=== PATIENT | male | born 1955 | race Caucasian/White ===

== ENCOUNTER 2018-09-01 16:48 | Inpatient (IN) | payer OTHER ==
--- NOTE | 2018-09-01 19:37 | ER Document Report ---
ED Medical Screen (RME) - General Chief Complaint: Shortness Of Breath Stated Complaint: BREATHING PROBLEMS Time Seen by Provider: 09/01/18 19:08 - HPI Notes: 09/01/18 19:24 Patient is a 62-year-old male with a history of hypertension, diabetes, COPD, for previous CVAs and on Aggrenox who presents with daughter and son with multiple complaints. Family states that his last known normal was last evening and this morning throughout the day they have noticed changes in his strength and behavior. Son states that he has shown more weakness than normal on the right side and is acting sluggish and "not himself." Patient states that he normally has right-sided weakness from the previous strokes, but states that he does feel weaker on his right and left area son states that when he was walking earlier today he noticed that the patient was dragging his right side more than normal. He is also been experiencing fatigue, mild JACOB, right-sided chest pain, occ cough, shortness of breath, mild generalized abdominal pain, nausea and vomiting throughout the day today. Today he has had issues with urinary urgency and frequency and had an accident on himself here in the waiting room. Daughter is not sure if he actually feels it coming on, but patient states that he feels the urge, but cannot hold it in long enough to get to the bathroom. Patient denies any saddle anesthesia. Denies any fever, neck pain, changes in vision /speech/hearing, URI, sore throat, palpitations, syncope, diarrhea, numbness/tingling, saddle anesthesia, muscle paralysis, or rash. I have treated and performed a rapid initial assessment of this patient. A comprehensive ED assessment and evaluation of the patient, analysis of test results and completion of medical decision making process will be conducted by additional ED providers. PHYSICAL EXAMINATION: GENERAL: no acute distress aside from mild tachypnea. A&O to person/place but too a guess at the year at 2016. Answers questions appropriately otherwise. HEAD: Atraumatic, normocephalic. Non-tender. EYES: Pupils equal round and reactive to light, extraocular movements intact, sclera anicteric, conjunctiva are normal. No nystagmus. ENT: Nares patent and without discharge. oropharynx clear without exudates. No tonsilar hypertrophy or erythema. Moist mucous membranes. NECK: Normal range of motion, supple without lymphadenopathy. No rigidity/meningismus. No midline tenderness. LUNGS: Breath sounds clear to auscultation bilaterally and equal. No wheezes rales or rhonchi. + mild tachypnea and shallow breaths HEART: Regular rate and rhythm but somewhat tachycardic ABDOMEN: Soft, nondistended abdomen. No guarding, no rebound. Normal bowel sounds present. No CVA tenderness bilaterally. + mild generalized tenderness. Musculoskeletal: Ext b/l: FROM to passive/active. Strength 4+/5 on right and 5+/5 on the left (minimal difference noted). Extremities: No cyanosis, clubbing, or edema b/l. Peripheral pulses 2+. Capillary refill less than 2 seconds. NEUROLOGICAL: NIH 1 for the time (no calculation on NIH for focal weakness). GCS 15. Cranial nerves grossly intact. Normal speech, normal gait. Normal sensory, motor exams. Reflexes 2+ b/l. KAMRAN's negative. Pronator drift negative. Heel/aguilera, finger/nose wnl. Romberg neg. PSYCH: Normal mood, normal affect. SKIN: Warm, Dry, normal turgor, no rashes or lesions noted. - Related Data Allergies/Adverse Reactions: No Known Allergies Allergy (Unverified 09/01/18 19:14) Physical Exam - Vital signs Vitals: Temp Pulse Resp BP Pulse Ox 98.2 F 107 H 24 H 150/85 H 95 09/01/18 16:54 09/01/18 16:54 09/01/18 16:54 09/01/18 16:54 09/01/18 16:54 Course - Vital Signs Vital signs: Temp Pulse Resp BP Pulse Ox 98.2 F 107 H 24 H 150/85 H 95 09/01/18 16:54 09/01/18 16:54 09/01/18 16:54 09/01/18 16:54 09/01/18 16:54
[2018-09-01] MEDS ORDERED: IPRATROPIUM/ALBUTEROL 0.5-2.5 MG/3 ML AMPUL NEB ONE (19:57)
--- NOTE | 2018-09-01 20:37 | RADIOLOGY REPORT (SQ) ---
XR CHEST 2 VIEWS EXAM DATE: 09/01/2018 7:21 PM CDT HISTORY: CP/SOB. COMPARISON: None. FINDINGS: The heart size is within normal limits. No consolidation, pleural effusion, or pneumothorax is seen. The bony thorax is intact. IMPRESSION: No evidence of acute cardiopulmonary disease.
--- NOTE | 2018-09-01 20:40 | RADIOLOGY REPORT (SQ) ---
CT HEAD WITHOUT IV CONTRAST EXAM DATE: 09/01/2018 7:23 PM CDT HISTORY: Weakness R>L, JACOB. h/o CVA. COMPARISON: None. TECHNIQUE: CT scan of the brain without IV contrast. This exam was performed according to our departmental dose-optimization program, which includes automated exposure control, adjustment of the mA and/or kV according to patient size and/or use of iterative reconstruction technique. FINDINGS: Diffuse involutional changes are present. No evidence of acute infarction, intracranial hemorrhage, extra-axial fluid collection, or midline shift. No air-fluid levels are seen in the paranasal sinuses to suggest acute sinusitis. No depressed skull fracture. IMPRESSION: 1. No acute intracranial findings. 2. Senescent changes with chronic microvascular ischemia.
[2018-09-01 20:57] LABS: APPEARANCE,URINE CLOUDY; BILIRUBIN,URINE NEGATIVE (NEGATIVE); COLOR,URINE YELLOW; GLUCOSE, URINE 50 mg/dL (NEGATIVE); KETONES,URINE NEGATIVE (NEGATIVE); LEUKOCYTE ESTERASE,URINE NEGATIVE (NEGATIVE); NITRITE,URINE NEGATIVE (NEGATIVE); PROTEIN,URINE 30 mg/dL (NEGATIVE); URINE SPECIFIC GRAVITY 1.013
[2018-09-01 22:08] LABS: VENOUS BLOOD BASE EXCESS 0.9 mmol/L; VENOUS BLOOD PCO2 34.1 mmHg (35-63); VENOUS BLOOD PH 7.47 (7.30-7.42)
[2018-09-01 22:11] LABS: HEMATOCRIT 41.1 % (37.9-51.0); HEMOGLOBIN 13.9 g/dL (13.5-17.0); MEAN CORPUSCULAR HEMOGLOBIN 28.9 pg (27.0-33.4); MEAN CORPUSCULAR HGB CONC 33.7 g/dL (32.0-36.0); MEAN CORPUSCULAR VOLUME 86 fl (80-97); PLATELET COUNT 295 10^3/uL (150-450); RED CELL DISTRIBUTION WIDTH 13.3 % (11.5-14.0); WHITE BLOOD COUNT 27.7 10^3/uL (4.0-10.5)
[2018-09-01 22:15] LABS: INTERNATIONAL RATION (INR) 1.08
[2018-09-01 22:29] LABS: ALANINE AMINOTRANSFERASE 45 U/L (21-72); ALBUMIN 4.6 g/dL (3.5-5.0); ALKALINE PHOSPHATASE 62 U/L (38-126); ANION GAP 13 (5-19); ASPARTATE AMINO TRANSFERASE 45 U/L (17-59); BILIRUBIN,DIRECT 0.7 mg/dL (0.0-0.4); BILIRUBIN,TOTAL 1.2 mg/dL (0.2-1.3); BLOOD UREA NITROGEN 19 mg/dL (7-20); CARBON DIOXIDE 26 mmol/L (22-30); CHLORIDE 96 mmol/L (98-107); CREATINE KINASE 78 U/L (55-170); GLUCOSE 149 mg/dL (75-110); POTASSIUM 3.1 mmol/L (3.6-5.0); TOTAL PROTEIN 8.1 g/dL (6.3-8.2)
[2018-09-01 22:30] LABS: ABSOLUTE LYMPHOCYTES# (MANUAL) 2.2 10^3/uL (0.5-4.7); ABSOLUTE MONOCYTES # (MANUAL) 1.1 10^3/uL (0.1-1.4); BAND NEUTROPHILS % (MANUAL) 3 % (3-5); BASOPHILS % (MANUAL) 0 % (0-2); EOSINOPHILS % (MANUAL) 0 % (0-6); LYMPHOCYTES % (MANUAL) 8 % (13-45); MONOCYTES % (MANUAL) 4 % (3-13); PLATELET COMMENT ADEQUATE; SEGMENTED NEUTROPHILS % (MAN) 85 % (42-78); TOTAL CELLS COUNTED 100
[2018-09-01 22:31] LABS: RBC MORPHOLOGY COMMENT NORMO-CYTIC/CHROMIC
[2018-09-01 22:41] LABS: CREATINE KINASE MB < 0.22 ng/mL (<4.55); TROPONIN I < 0.012 ng/mL
[2018-09-01] MEDS ORDERED: NORMAL SALINE 1000 ML 1,000 ML IV ONE (23:47)
--- NOTE | 2018-09-01 23:50 | ER Document Report ---
ED General - General Chief Complaint: Shortness Of Breath Stated Complaint: BREATHING PROBLEMS Time Seen by Provider: 09/01/18 19:08 Primary Care Provider: THA,FORTINO [Primary Care Provider] - Follow up as needed - HPI Notes: Patient is a very pleasant 62-year-old male who presents to the emergency depar tment for evaluation. He states that yesterday evening he started "feeling bad." He really cannot tell me any further with that means. He did have a minimal cough. He states he felt somewhat short of breath. He just felt poorly, so went to bed early. While in bed, the patient developed rigors and shaking chills. He woke up this morning, and according to family members he was just not making complete sense. He seemed to be weaker, particularly on his right side, which is been affected by CVAs in the past. He had nausea and multiple episodes of dry heaving. He denies any mouth or dental source of infection. He again has had a cough. No diarrhea. No skin rashes, cuts, or lesions. He has been taking his medications as prescribed. - Related Data Allergies/Adverse Reactions: No Known Allergies Allergy (Unverified 09/01/18 19:14) Past Medical History - General Information source: Patient, Relative - Social History Smoking Status: Former Smoker Frequency of alcohol use: Rare Drug Abuse: None Family History: Malignancy Patient has suicidal ideation: No Patient has homicidal ideation: No - Past Medical History Cardiac Medical History: Reports: Hx Hypercholesterolemia, Hx Hypertension Pulmonary Medical History: Reports: Hx COPD Neurological Medical History: Reports: Hx Cerebrovascular Accident Endocrine Medical History: Reports: Hx Diabetes Mellitus Type 2 - diet controlled, Hx Hypothyroidism Renal/ Medical History: Denies: Hx Peritoneal Dialysis Review of Systems - Review of Systems Constitutional: See HPI EENT: No symptoms reported Cardiovascular: No symptoms reported Respiratory: See HPI Gastrointestinal: See HPI Genitourinary: See HPI Physical Exam - Vital signs Vitals: Temp Pulse Resp BP Pulse Ox 98.2 F 107 H 24 H 150/85 H 95 09/01/18 16:54 09/01/18 16:54 09/01/18 16:54 09/01/18 16:54 09/01/18 16:54 - Notes Notes: Vital signs reviewed, please refer to chart. Head is normocephalic, atraumatic. Pupils equal round, reactive to light. Neck is supple without meningismus. Heart is tachycardic with normal S1-S2. Lungs reveal diminished breath sounds with occasional expiratory wheezes throughout. Abdomen is soft, nontender, normoactive bowel sounds throughout. Extremities without cyanosis, clubbing. Posterior calves are nontender. Peripheral pulses are equal. Skin is warm and dry. Patient is awake, alert, oriented x3. Cranial nerves II - XII are grossly intact without focal neurological deficits. No pronator drift. Strength is plus 5 out of 5 bilateral upper extremities. 4 out of 5 strength of right lower extremity, 5 out of 5 on the left. Sensation is intact. Reflexes symmetrical. Intact [id number], rapid alternating movements, [id number]. Course - Re-evaluation Re-evalutation: 09/01/18 23:49 Patient presents emergency department for evaluation. He presented with Reiger's, overall feeling poorly. His neurological exam reveals very mild weakness in the right lower extremity, but I cannot find any focal lesions. I am more concerned about his elevated heart rate, elevated white blood cells. I strongly suspect sepsis in this patient. His most likely source seems pneumonia, despite a normal chest x-ray. I will go ahead and treat him with Rocephin and Zithromax. Cultures are pending. She was ordered fluid resuscitation, 2 L, with a third at 200ml an hour. He has no history of heart failure. I discussed plan with patient, and he is amenable to admission. 09/02/18 00:[address] Camargo. He will come down to evaluate the patient, as he is concerned that no clear source of infection has yet been identified. After evaluating the patient, he wanted an abdomen and pelvis CT, with contrast, as he was concerned about an intra-abdominal cause. 09/02/18 04:02 CT scan revealed a consolidative process in the right lung, no other acute intra-abdominal process. Will treat patient for sepsis with pneumonia as source. Patient will be admitted to Dr. Camargo. - Vital Signs Vital signs: Temp Pulse Resp BP Pulse Ox 98.2 F 123 H 34 H 147/78 H 94 09/01/18 16:54 09/01/18 19:33 09/01/18 19:33 09/01/18 19:33 09/01/18 19:33 - Laboratory Result Diagrams: 09/01/18 21:33 09/01/18 21:33 Laboratory results interpreted by me: 09/01/18 09/01/18 09/01/18 19:54 21:33 21:33 WBC 27.7 H Seg Neuts % (Manual) 85 H Lymphocytes % (Manual) 8 L Abs Neuts (Manual) 24.4 H VBG pH VBG pCO2 Sodium 135.0 L Potassium 3.1 L Chloride 96 L Creatinine 1.26 H Est GFR (Non-Af Amer) 58 L Glucose 149 H Lactic Acid Magnesium Direct Bilirubin 0.7 H Urine Protein 30 H Urine Glucose (UA) 50 H Urine Blood SMALL H Urine Urobilinogen 2.0 H 09/01/18 09/01/18 09/01/18 21:33 21:33 23:20 WBC Seg Neuts % (Manual) Lymphocytes % (Manual) Abs Neuts (Manual) VBG pH 7.47 H VBG pCO2 34.1 L Sodium Potassium Chloride Creatinine Est GFR (Non-Af Amer) Glucose Lactic Acid 2.5 H Magnesium 1.3 L Direct Bilirubin Urine Protein Urine Glucose (UA) Urine Blood Urine Urobilinogen - Diagnostic Test Radiology reviewed: Reports reviewed Radiology results interpreted by me: 09/01/18 23:51 Chest X-Ray 09/01/18 19:21 IMPRESSION: No evidence of acute cardiopulmonary disease. Head CT 09/01/18 19:23 IMPRESSION: 1. No acute intracranial findings. 2. Senescent changes with chronic microvascular ischemia. 09/02/18 04:01 Chest X-Ray 09/01/18 19:21 IMPRESSION: No evidence of acute cardiopulmonary disease. Head CT 09/01/18 19:23 IMPRESSION: 1. No acute intracranial findings. 2. Senescent changes with chronic microvascular ischemia. Abdomen/Pelvis CT 09/02/18 00:24 IMPRESSION: 1. Small consolidative opacity of the right lower lobe. Differential etiologies include infectious, inflammatory, and neoplastic processes. Recommend contrast CT chest surveillance including at 7-12 weeks following initiation of any clinically warranted therapy. 2. No acute abdominal findings. - EKG Interpretation by Me Additional EKG results interpreted by me: 09/01/18 23:51 Sinus tachycardia with a rate of 114 bpm. Normal axis. Right bundle branch block. No old studies for comparison. Discharge - Discharge Clinical Impression: Severe sepsis Pneumonia Qualifiers: Laterality: right Lung location: lower lobe of lung Condition: Stable Disposition: ADMITTED INPATIENT Admitting Provider: Raman (Hospitalist) Unit Admitted: Telemetry [facility]errals: [facility] [[facility]] - Follow up as needed
[2018-09-01] MEDS ORDERED: CEFEPIME 2 GM/D5W RTU 2 GM/50 ML RTUPB IV ONE (23:53)
[2018-09-02] MEDS: NORMAL SALINE 1000 ML 1,000 ML IV PRN ×4 (00:09→15:46)
--- NOTE | 2018-09-02 03:55 | RADIOLOGY REPORT (SQ) ---
EXAM DESCRIPTION: CT ABDOMEN PELVIS WITH IV CONTRAST COMPLETED DATE/TME: 09/02/2018 00:24 CLINICAL HISTORY: 62 years Male, abdominal pain, sepsis Comparison: None. Technique: IV and oral contrast. Coronal and sagittal reformat. This exam was performed according to our departmental dose-optimization program, which includes automated exposure control, adjustment of the mA and/or kV according to patient size and/or use of iterative reconstruction technique. [facility]: Dose Right [facility]: CareDose [facility]: Dose Right [facility]: Teradose 4D [facility]: FohBoh LIMITATIONS: None Findings: Small consolidative opacity of the right lower lobe. Differential etiologies include infectious, inflammatory, and neoplastic processes. Recommend contrast CT chest surveillance including at 7-12 weeks following initiation of any clinically warranted therapy. Hepatic steatosis. Likely benign renal cyst(s), not definitively characterized. Coronary arterial calcification. Atherosclerotic vascular disease. Small disc bulge at L5-S1. Degenerative disc disease. No ascites. No pneumoperitoneum. Normal appendix. No gross evidence of gallbladder inflammation or hepatobiliary obstruction. No bowel obstruction. No hydronephrosis or hydroureter. No renal/ureteral stone. No evidence of abdominal aortic aneurysm. Inferior thorax, gallbladder, pancreas, spleen, adrenals, renal system, gastrointestinal tract, pelvic organs, lymphatics, vasculature, and musculoskeleton appear otherwise unremarkable. IMPRESSION: 1. Small consolidative opacity of the right lower lobe. Differential etiologies include infectious, inflammatory, and neoplastic processes. Recommend contrast CT chest surveillance including at 7-12 weeks following initiation of any clinically warranted therapy. 2. No acute abdominal findings.
[2018-09-02] MEDS: POTASSI CL 20 MEQ/50 ML RIDER 20 MEQ/50 ML RTUPB IV SCH ×2 (03:59→05:48)
[2018-09-02] MEDS: MAGNESIUM SULFATE/D5W 1 GM/100 ML RTUPB IV SCH ×2 (04:00→05:11)
[2018-09-02] MEDS ORDERED: ACETAMINOPHEN 325 MG TABLET PO PRN (04:25)
[2018-09-02] MEDS ORDERED: HYDRALAZINE HCL INJ/PF 20 MG/1 ML SDV IV PRN (04:25)
[2018-09-02 04:44] LABS: HEMATOCRIT 34.9 % (37.9-51.0); HEMOGLOBIN 11.9 g/dL (13.5-17.0); MEAN CORPUSCULAR HEMOGLOBIN 28.9 pg (27.0-33.4); MEAN CORPUSCULAR VOLUME 85 fl (80-97); PLATELET COUNT 239 10^3/uL (150-450); RED BLOOD COUNT 4.11 10^6/uL (4.35-5.55); RED CELL DISTRIBUTION WIDTH 13.2 % (11.5-14.0); WHITE BLOOD COUNT 25.1 10^3/uL (4.0-10.5)
[2018-09-02] MEDS: IBUPROFEN 400 MG TABLET PO PRN ×2 (04:44→23:57)
[2018-09-02] MEDS ORDERED: AZITHROMYCIN INJ 500 MG VIAL IV PRN (04:51)
[2018-09-02] MEDS ORDERED: AZITHROMYCIN 500 MG in DEXTROSE 5%-WATER 250 ML IV ONE ×2 (05:00→08:00)
[2018-09-02 05:27] LABS: ABSOLUTE LYMPHOCYTES# (MANUAL) 1.5 10^3/uL (0.5-4.7); ABSOLUTE MONOCYTES # (MANUAL) 1.8 10^3/uL (0.1-1.4); BAND NEUTROPHILS % (MANUAL) 2 % (3-5); BASOPHILS % (MANUAL) 0 % (0-2); EOSINOPHILS % (MANUAL) 0 % (0-6); LYMPHOCYTES % (MANUAL) 6 % (13-45); MONOCYTES % (MANUAL) 7 % (3-13); NUCLEATED RED BLOOD CELLS 1 /100 WBC (0); SEGMENTED NEUTROPHILS % (MAN) 85 % (42-78); TOTAL CELLS COUNTED 100
[2018-09-02 05:29] LABS: PLATELET COMMENT ADEQUATE; POLYCHROMASIA SLIGHT; TEAR DROP CELLS SLIGHT; TOXIC GRANULATION SLIGHT
[2018-09-02] MEDS: IPRATROPIUM/ALBUTEROL 0.5-2.5 MG/3 ML AMPUL NEB PRN ×2 (05:48→21:44)
[2018-09-02] MEDS ORDERED: DEXTROSE 50%-WATER 25 GM/50 ML DISP.SYRIN IV PRN ×2 (06:24)
[2018-09-02] MEDS ORDERED: GLUCAGON,HUMAN RECOMB 1 MG INJ IM PRN (06:24)
[2018-09-02] MEDS ORDERED: DEXTROSE 40% GEL 15 GM TUBE PO PRN ×2 (06:24)
[2018-09-02] MEDS: HEPARIN SOD (PORCINE) 5,000 UNIT/ML 1 ML VIAL SUBCUT SCH ×3 (06:24→21:30)
--- NOTE | 2018-09-02 06:24 | PDOC H&P ---
History of Present Illness Admission Date/PCP: 09/02/18 04:13 [facility] Patient complains of: Shortness of breath History of Present Illness: JENNIFER CHAPARRO is a 62 year old male with a past medical history of hypertension, CVA with right-sided residual weakness and diabetes. He presents with 24 hours of right-sided chest pain and nonproductive cough prompting evaluation emergency room where he has work-up concerning for pneumonia with a consolidation in the right lung base, leukocytosis, hypokalemia and hypomagnesemia. He receives empiric antibiotics and referred to the hospitalist for admission. Patient denies aspiration while eating or drinking, admits chronic sinus congestion with daily OTC decongestant spray, a strong family history of lung cancer and a personal history of greater than 50 pack years but discontinued 9 years ago. Past Medical History Cardiac Medical History: Reports: Hyperlipidema, Hypertension Pulmonary Medical History: Reports: Chronic Obstructive Pulmonary Disease (COPD) Endocrine Medical History: Reports: Diabetes Mellitus Type 2 - diet controlled, Hypothyroidism Past Surgical History Past Surgical History: Reports: None Social History Information Source: Patient, Relative, Emergency Med Personnel Lives with: Family Smoking Status: Former Smoker Frequency of Alcohol Use: None Drugs: None - Advance Directive Resuscitation Status: Full Code Family History Family History: Malignancy Parental Family History Reviewed: Yes Children Family History Reviewed: Yes Sibling(s) Family History Reviewed.: Yes Medication/Allergy Allergies/Adverse Reactions: No Known Allergies Allergy (Unverified 09/01/18 19:14) Review of Systems Constitutional: ABSENT: chills, fever(s), headache(s), weight gain, weight loss Eyes: ABSENT: visual disturbances Ears: ABSENT: hearing changes Nose, Mouth, and Throat: PRESENT: other - Chronic sinus congestion Cardiovascular: ABSENT: chest pain, dyspnea on exertion, edema, orthropnea, palpitations Respiratory: ABSENT: cough, hemoptysis Gastrointestinal: ABSENT: abdominal pain, constipation, diarrhea, hematemesis, hematochezia, nausea, vomiting Genitourinary: ABSENT: dysuria, hematuria Musculoskeletal: ABSENT: joint swelling Integumentary: ABSENT: rash, wounds Neurological: ABSENT: abnormal gait, abnormal speech, confusion, dizziness, focal weakness, syncope Psychiatric: ABSENT: anxiety, depression, homidical ideation, suicidal ideation Endocrine: ABSENT: cold intolerance, heat intolerance, polydipsia, polyuria Hematologic/Lymphatic: ABSENT: easy bleeding, easy bruising Physical Exam Vital Signs: Temp Pulse Resp BP Pulse Ox 98.9 F 123 H 22 H 115/58 L 96 09/02/18 01:01 09/01/18 19:33 09/02/18 06:00 09/02/18 05:15 09/02/18 06:00 Intake & Output 08/31/18 09/01/18 09/02/18 11:59 11:59 11:59 Intake Total 2094 Balance 2094 Weight 90.6 kg General appearance: PRESENT: cooperative, mild distress, well-developed, well- nourished Head exam: PRESENT: atraumatic, normocephalic Eye exam: PRESENT: conjunctiva pink, EOMI, PERRLA. ABSENT: scleral icterus Ear exam: PRESENT: normal external ear exam Mouth exam: PRESENT: moist, tongue midline Neck exam: ABSENT: carotid bruit, JVD, lymphadenopathy, thyromegaly Respiratory exam: PRESENT: accessory muscle use, crackles, prolonged expiratory phas, retraction, tachypnea. ABSENT: rales, rhonchi, wheezes Cardiovascular exam: PRESENT: RRR, tachycardia. ABSENT: diastolic murmur, rubs, systolic murmur Pulses: PRESENT: normal dorsalis pedis pul Vascular exam: PRESENT: normal capillary refill GI/Abdominal exam: PRESENT: normal bowel sounds, soft. ABSENT: distended, guarding, mass, organolmegaly, rebound, tenderness Rectal exam: PRESENT: deferred Extremities exam: PRESENT: full ROM. ABSENT: calf tenderness, clubbing, pedal edema Neurological exam: PRESENT: alert, awake, oriented to person, oriented to place, oriented to time, oriented to situation, CN II-XII grossly intact. ABSENT: motor sensory deficit Psychiatric exam: PRESENT: appropriate affect, normal mood. ABSENT: homicidal ideation, suicidal ideation Skin exam: PRESENT: dry, intact, warm. ABSENT: cyanosis, rash Results Laboratory Results: 09/02/18 03:27 09/01/18 21:33 09/01/18 09/01/18 09/01/18 19:54 21:33 21:33 WBC 27.7 H RBC 4.80 Hgb 13.9 Hct 41.1 MCV 86 MCH 28.9 MCHC 33.7 RDW 13.3 Plt Count 295 Seg Neutrophils % Not Reportable Lymphocytes % Not Reportable Monocytes % Not Reportable Eosinophils % Not Reportable Basophils % Not Reportable Absolute Neutrophils Not Reportable Absolute Lymphocytes Not Reportable Absolute Monocytes Not Reportable Absolute Eosinophils Not Reportable Absolute Basophils Not Reportable VBG pH VBG pCO2 VBG HCO3 VBG Base Excess Sodium 135.0 L Potassium 3.1 L Chloride 96 L Carbon Dioxide 26 Anion Gap 13 BUN 19 Creatinine 1.26 H Est GFR ( Amer) > 60 Est GFR (Non-Af Amer) 58 L Glucose 149 H Lactic Acid Calcium 10.0 Magnesium Total Bilirubin 1.2 AST 45 ALT 45 Alkaline Phosphatase 62 Total Protein 8.1 Albumin 4.6 Urine Color YELLOW Urine Appearance CLOUDY Urine pH 7.0 Ur Specific Clarence 1.013 Urine Protein 30 H Urine Glucose (UA) 50 H Urine Ketones NEGATIVE Urine Blood SMALL H Urine Nitrite NEGATIVE Ur Leukocyte Esterase NEGATIVE Urine WBC (Auto) 1 Urine RBC (Auto) 1 09/01/18 09/01/18 09/01/18 21:33 21:33 23:20 WBC RBC Hgb Hct MCV MCH MCHC RDW Plt Count Seg Neutrophils % Lymphocytes % Monocytes % Eosinophils % Basophils % Absolute Neutrophils Absolute Lymphocytes Absolute Monocytes Absolute Eosinophils Absolute Basophils VBG pH 7.47 H VBG pCO2 34.1 L VBG HCO3 24.0 VBG Base Excess 0.9 Sodium Potassium Chloride Carbon Dioxide Anion Gap BUN Creatinine Est GFR ( Amer) Est GFR (Non-Af Amer) Glucose Lactic Acid 2.5 H Calcium Magnesium 1.3 L Total Bilirubin AST ALT Alkaline Phosphatase Total Protein Albumin Urine Color Urine Appearance Urine pH Ur Specific Clarence Urine Protein Urine Glucose (UA) Urine Ketones Urine Blood Urine Nitrite Ur Leukocyte Esterase Urine WBC (Auto) Urine RBC (Auto) 09/02/18 09/02/18 03:27 03:27 WBC 25.1 H RBC 4.11 L Hgb 11.9 L Hct 34.9 L MCV 85 MCH 28.9 MCHC 34.0 RDW 13.2 Plt Count 239 Seg Neutrophils % Not Reportable Lymphocytes % Not Reportable Monocytes % Not Reportable Eosinophils % Not Reportable Basophils % Not Reportable Absolute Neutrophils Not Reportable Absolute Lymphocytes Not Reportable Absolute Monocytes Not Reportable Absolute Eosinophils Not Reportable Absolute Basophils Not Reportable VBG pH VBG pCO2 VBG HCO3 VBG Base Excess Sodium Potassium Chloride Carbon Dioxide Anion Gap BUN Creatinine Est GFR ( Amer) Est GFR (Non-Af Amer) Glucose Lactic Acid 1.5 Calcium Magnesium Total Bilirubin AST ALT Alkaline Phosphatase Total Protein Albumin Urine Color Urine Appearance Urine pH Ur Specific Clarence Urine Protein Urine Glucose (UA) Urine Ketones Urine Blood Urine Nitrite Ur Leukocyte Esterase Urine WBC (Auto) Urine RBC (Auto) 09/01/18 09/01/18 21:33 21:33 Creatine Kinase 78 CK-MB (CK-2) < 0.22 Troponin I < 0.012 Impressions: Chest X-Ray 09/01/18 19:21 IMPRESSION: No evidence of acute cardiopulmonary disease. Head CT 09/01/18 19:23 IMPRESSION: 1. No acute intracranial findings. 2. Senescent changes with chronic microvascular ischemia. Abdomen/Pelvis CT 09/02/18 00:24 IMPRESSION: 1. Small consolidative opacity of the right lower lobe. Differential etiologies include infectious, inflammatory, and neoplastic processes. Recommend contrast CT chest surveillance including at 7-12 weeks following initiation of any clinically warranted therapy. 2. No acute abdominal findings. Assessment and Plan - Diagnosis (1) Pneumonia Qualifiers: Laterality: right Lung location: lower lobe of lung Is this a current diagnosis for this admission?: Yes Plan: Pneumonia care set deployed, empiric antibiotics initiated, Flonase, incentive spirometry, PT, albuterol and Atrovent. Patient will require CT chest follow-up imaging given increased lung cancer risks. Follow-up CBC and blood culture (2) Severe sepsis Is this a current diagnosis for this admission?: Yes Plan: Secondary to #1, IV fluid challenge, follow-up lactic acid (3) Hypokalemia Is this a current diagnosis for this admission?: Yes Plan: Replace and follow-up chemistry and magnesium (4) Hypomagnesemia Is this a current diagnosis for this admission?: Yes Plan: Replacement and follow-up magnesium - Time Time Spent with patient: 35 or more minutes - Inpatient Certification Medical Necessity: Need Close Monitoring Due to Risk of Patient Decompensation
[2018-09-02] MEDS: IPRATROPIUM/ALBUTEROL 0.5-2.5 MG/3 ML AMPUL NEB SCH ×2 (08:01→15:56)
[2018-09-02] MEDS: CEFTRIAXONE SODIUM 1,000 MG in DEXTROSE 5%-WATER 50 ML IV SCH (09:56)
[2018-09-02] MEDS: INSULIN LISPRO 100 UNIT/ML 3 ML VIAL SUBCUT SCH ×3 (09:58→16:58)
[2018-09-02] MEDS ORDERED: CEFTRIAXONE 1 GM/D5W RTU 1 GM/50 ML RTUPB IV SCH (10:00)
--- NOTE | 2018-09-02 10:05 | EKG REPORT ---
SEVERITY:- ABNORMAL ECG - SINUS TACHYCARDIA RIGHT BUNDLE BRANCH BLOCK : Confirmed by: Issac Luke MD 02-Sep-2018 10:04:43
[2018-09-02] MEDS: AZITHROMYCIN 500 MG in DEXTROSE 5%-WATER 250 ML IV SCH (10:42)
[2018-09-02] MEDS ORDERED: ALBUTEROL SULFATE HFA (90 MCG/PUFF) 200 PUFF/8.5 GM MDI IH PRN (16:59)
--- NOTE | 2018-09-02 17:04 | Progress Note ---
Provider Note Provider Note: JENNIFER CHAPARRO is a 62 year old male with a past medical history of hypertension, CVA with right-sided residual weakness and diabetes admitted early this morning by the crystal finisher for pneumonia and sepsis. Overnight events, vital signs, laboratory results, imaging, and orders reviewed. Agree with the plan of care as established by the previous provider. Continue empiric treatment for community-acquired pneumonia with IV azithromycin and Rocephin, supplemental oxygen as needed, scheduled and as needed nebulizer t reatments, and pulmonary toilet. Sepsis has improved; Vital signs are now acceptable; patient has been afebrile since admission, normal heart rate, acceptable blood pressures, and maintaining oxygen saturations in the low to mid 90s on supplemental oxygen via nasal cannula. Lactic acidosis has resolved, and leukocytosis is trending down. Home medications have been reconciled and resumed as appropriate.
[2018-09-02] MEDS: METOPROLOL TARTRATE 50 MG TABLET PO SCH (21:30)
[2018-09-03] MEDS: IPRATROPIUM/ALBUTEROL 0.5-2.5 MG/3 ML AMPUL NEB SCH ×4 (00:12→23:10)
[2018-09-03 05:31] LABS: ABSOLUTE BASOPHILS # (AUTO) 0.1 10^3/uL (0.0-0.2); ABSOLUTE EOSINOPHILS # (AUTO) 0.2 10^3/uL (0.0-0.6); ABSOLUTE LYMPHOCYTES (AUTO) 2.2 10^3/uL (0.5-4.7); ABSOLUTE NEUT (AUTO) 16.1 10^3/uL (1.7-8.2); BASOPHILS % (AUTO) 0.4 % (0-2); EOSINOPHILS % (AUTO) 1.1 % (0-6); HEMATOCRIT 34.8 % (37.9-51.0); HEMOGLOBIN 11.7 g/dL (13.5-17.0); LYMPHOCYTES % (AUTO) 11.4 % (13-45); MEAN CORPUSCULAR HEMOGLOBIN 28.7 pg (27.0-33.4); MEAN CORPUSCULAR HGB CONC 33.5 g/dL (32.0-36.0); MEAN CORPUSCULAR VOLUME 86 fl (80-97); MONOCYTES % (AUTO) 5.3 % (3-13); PLATELET COUNT 254 10^3/uL (150-450); RED BLOOD COUNT 4.07 10^6/uL (4.35-5.55); RED CELL DISTRIBUTION WIDTH 13.4 % (11.5-14.0); SEGMENTED NEUTROPHILS % (AUTO) 81.8 % (42-78); TOTAL CELLS COUNTED % (AUTO) 100 %; WHITE BLOOD COUNT 19.6 10^3/uL (4.0-10.5)
[2018-09-03] MEDS: LEVOTHYROXINE SODIUM 0.025 MG TABLET PO SCH (05:48)
[2018-09-03] MEDS: PANTOPRAZOLE SODIUM 40 MG TABLET.DR PO SCH (05:48)
[2018-09-03] MEDS: HEPARIN SOD (PORCINE) 5,000 UNIT/ML 1 ML VIAL SUBCUT SCH ×3 (05:50→21:42)
[2018-09-03 05:52] LABS: ANION GAP 8 (5-19); BLOOD UREA NITROGEN 13 mg/dL (7-20); CALCIUM 8.4 mg/dL (8.4-10.2); CARBON DIOXIDE 24 mmol/L (22-30); CHLORIDE 106 mmol/L (98-107); GLUCOSE 109 mg/dL (75-110); POTASSIUM 3.1 mmol/L (3.6-5.0)
[2018-09-03] MEDS: INSULIN LISPRO 100 UNIT/ML 3 ML VIAL SUBCUT SCH ×3 (07:54→16:52)
[2018-09-03] MEDS ORDERED: POTASSIUM CHLORIDE 10 MEQ CAPSULE.ER PO ONE (09:00)
[2018-09-03] MEDS: CEFTRIAXONE SODIUM 1,000 MG in DEXTROSE 5%-WATER 50 ML IV SCH (09:40)
[2018-09-03] MEDS: FENOFIBRATE NANOCRYSTALLIZED 145 MG TABLET PO SCH (09:49)
[2018-09-03] MEDS: AMLODIPINE BESYLATE 10 MG TABLET PO SCH (09:49)
[2018-09-03] MEDS: MULTIVITAMIN TABLET PO SCH (09:50)
[2018-09-03] MEDS: POTASSIUM CHLORIDE 10 MEQ CAPSULE.ER PO SCH (09:50)
[2018-09-03] MEDS: CETIRIZINE 10 MG TABLET PO SCH (09:50)
[2018-09-03] MEDS: ASPIRIN/DIPYRIDAMOLE 25-200 MG 1 CAP.SR CPMP.12HR PO SCH (09:50)
[2018-09-03] MEDS: METOPROLOL TARTRATE 50 MG TABLET PO SCH ×2 (09:50→21:42)
[2018-09-03] MEDS: HYDROCHLOROTHIAZIDE 25 MG TABLET PO SCH (09:50)
[2018-09-03] MEDS ORDERED: LIPIDS PO SCH (10:00)
[2018-09-03] MEDS ORDERED: OMEGA PO SCH (10:00)
[2018-09-03] MEDS ORDERED: KRILL PO SCH (10:00)
[2018-09-03] MEDS ORDERED: DHA PO SCH (10:00)
[2018-09-03] MEDS ORDERED: AZITHROMYCIN 500 MG in DEXTROSE 5%-WATER 250 ML IV SCH (10:00)
[2018-09-03] MEDS ORDERED: [UNRECOGNIZED DRUG - OTHER] PO SCH (10:00)
[2018-09-03] MEDS ORDERED: EPA PO SCH (10:00)
[2018-09-03] MEDS ORDERED: (PENDING PHARMACY ID) (Multivitamin With Minerals [One Daily Plus Minerals] 1 EACH) PO SCH (10:00)
[2018-09-03] MEDS: AZITHROMYCIN 500 MG in DEXTROSE 5%-WATER 250 ML IV SCH (10:39)
[2018-09-03] MEDS: IBUPROFEN 400 MG TABLET PO PRN (12:16)
--- NOTE | 2018-09-03 14:04 | Progress Note Acknowledgement ---
Progress Note Acknowledgement Progess Note Acknowledgement: I, the undersigned member of the medical staff with appropriate privileges and with supervisory authority over Aileen Salazar, a community hospital practice allied health professional, acknowledge that I have reviewed the progress notes entered on this patient, and in my professional judgment believe that the assessment made and/or any care evidenced was appropriate
--- NOTE | 2018-09-03 15:13 | PDOC PROGRESS REPORT ---
Subjective Progress Note for:: 09/03/18 Subjective:: JENNIFER CHAPARRO is a 62 year old male with a past medical history of hypertension, CVA with right-sided residual weakness and diabetes who was admitted 09/02/18 for sepsis secondary to RLL PNA. Patient was seen on morning rounds. He is found resting in bed comfortably on supplemental oxygen via nasal cannula. He is speaking full sentences, but noted to have increased work of breathing. He reports that overall he is feeling much better. He does continue to have some dyspnea at rest and an occasional productive cough. Otherwise, he denies fever, chills, chest pain, palpitations, orthopnea, abdominal pain, nausea vomiting and diarrhea. He has no new questions or concerns. No concerns per nursing. Reason For Visit: PNEUMONIA Physical Exam Vital Signs: Temp Pulse Resp BP Pulse Ox 98.5 F 96 19 124/77 95 09/03/18 12:00 09/03/18 12:00 09/03/18 12:00 09/03/18 12:00 09/03/18 12:00 Intake & Output 09/02/18 09/03/18 09/04/18 06:59 06:59 06:59 Intake Total 2095 6213 600 Output Total 600 Balance 2095 5613 600 Weight 89 kg 89.9 kg General appearance: PRESENT: no acute distress, cooperative, well-developed, well-nourished Head exam: PRESENT: atraumatic, normocephalic Eye exam: PRESENT: conjunctiva pink, EOMI, PERRLA. ABSENT: scleral icterus Ear exam: PRESENT: normal external ear exam Mouth exam: PRESENT: moist, tongue midline Neck exam: ABSENT: carotid bruit, JVD, lymphadenopathy, thyromegaly Respiratory exam: PRESENT: prolonged expiratory phas, rhonchi, symmetrical, unlabored, other - supplemental oxygen by NC. ABSENT: rales, wheezes Cardiovascular exam: PRESENT: RRR, +S1, +S2. ABSENT: diastolic murmur, rubs, systolic murmur Pulses: PRESENT: normal dorsalis pedis pul Vascular exam: PRESENT: normal capillary refill GI/Abdominal exam: PRESENT: normal bowel sounds, soft. ABSENT: distended, guarding, mass, organolmegaly, rebound, tenderness Rectal exam: PRESENT: deferred Extremities exam: PRESENT: full ROM. ABSENT: calf tenderness, clubbing, pedal edema Neurological exam: PRESENT: alert, awake, oriented to person, oriented to place, oriented to time, oriented to situation, CN II-XII grossly intact. ABSENT: motor sensory deficit Psychiatric exam: PRESENT: appropriate affect, normal mood. ABSENT: homicidal ideation, suicidal ideation Skin exam: PRESENT: dry, intact, warm. ABSENT: cyanosis, rash Results Laboratory Results: 09/03/18 05:05 09/03/18 05:05 09/03/18 09/03/18 05:05 05:05 WBC 19.6 H RBC 4.07 L Hgb 11.7 L Hct 34.8 L MCV 86 MCH 28.7 MCHC 33.5 RDW 13.4 Plt Count 254 Seg Neutrophils % 81.8 H Lymphocytes % 11.4 L Monocytes % 5.3 Eosinophils % 1.1 Basophils % 0.4 Absolute Neutrophils 16.1 H Absolute Lymphocytes 2.2 Absolute Monocytes 1.0 Absolute Eosinophils 0.2 Absolute Basophils 0.1 Sodium 138.0 Potassium 3.1 L Chloride 106 Carbon Dioxide 24 Anion Gap 8 BUN 13 Creatinine 1.13 Est GFR ( Amer) > 60 Est GFR (Non-Af Amer) > 60 Glucose 109 Calcium 8.4 Magnesium 1.9 09/01/18 09/01/18 21:33 21:33 Creatine Kinase 78 CK-MB (CK-2) < 0.22 Troponin I < 0.012 Impressions: Chest X-Ray 09/01/18 19:21 IMPRESSION: No evidence of acute cardiopulmonary disease. Head CT 09/01/18 19:23 IMPRESSION: 1. No acute intracranial findings. 2. Senescent changes with chronic microvascular ischemia. Abdomen/Pelvis CT 09/02/18 00:24 IMPRESSION: 1. Small consolidative opacity of the right lower lobe. Differential etiologies include infectious, inflammatory, and neoplastic processes. Recommend contrast CT chest surveillance including at 7-12 weeks following initiation of any clinically warranted therapy. 2. No acute abdominal findings. Assessment and Plan - Diagnosis (1) Pneumonia Qualifiers: Laterality: right Lung location: lower lobe of lung Is this a current diagnosis for this admission?: Yes Plan: Chest CT reveals a right lower lobe pneumonia. Blood cultures are negative at 24 hours Patient is admitted with Pneumonia to the medical floor on continuous telemetry He is provided supplemental oxygen as needed to maintain oxygen saturations. He is started on scheduled and as needed nebulizer treatments. He is empirically placed on IV Rocephin and azithromycin. Will adjust as cultures result. (2) Hypokalemia Is this a current diagnosis for this admission?: Yes Plan: Continue home dose p.o. potassium Will provide additional p.o. potassium today Will monitor daily chemistries and replace as indicated. (3) Hypomagnesemia Is this a current diagnosis for this admission?: Yes Plan: Replete. Will follow up with am lab work. (4) Severe sepsis Is this a current diagnosis for this admission?: Yes Plan: Improved; vital signs are now stable, leukocytosis is trending down. Lactic acidosis is resolved, kidney function returned to normal. Sepsis secondary to right lower lobe pneumonia, present on admission, evidenced by blood cultures are negative fever, tachycardia, tachypnea, hypoxia on room air, leukocytosis, ANJEL, elevated lactic acid Blood cultures are negative to date. Urine culture reveals Klebsiella. Antibiotics as above. - Time Time Spent with patient: 25-34 minutes Medications reviewed and adjusted accordingly: Yes Anticipated discharge: Home Within: within 48 hours
[2018-09-04] MEDS: PANTOPRAZOLE SODIUM 40 MG TABLET.DR PO SCH (05:35)
[2018-09-04] MEDS: LEVOTHYROXINE SODIUM 0.025 MG TABLET PO SCH (05:35)
[2018-09-04] MEDS: HEPARIN SOD (PORCINE) 5,000 UNIT/ML 1 ML VIAL SUBCUT SCH ×3 (05:37→21:10)
[2018-09-04] MEDS: IPRATROPIUM/ALBUTEROL 0.5-2.5 MG/3 ML AMPUL NEB SCH ×2 (08:00→16:29)
[2018-09-04] MEDS: INSULIN LISPRO 100 UNIT/ML 3 ML VIAL SUBCUT SCH ×3 (08:58→16:11)
[2018-09-04] MEDS ORDERED: IBUPROFEN 600 MG TABLET PO PRN (09:00)
[2018-09-04] MEDS: ASPIRIN/DIPYRIDAMOLE 25-200 MG 1 CAP.SR CPMP.12HR PO SCH (09:13)
[2018-09-04] MEDS: CEFTRIAXONE SODIUM 1,000 MG in DEXTROSE 5%-WATER 50 ML IV SCH (09:13)
[2018-09-04] MEDS: HYDROCHLOROTHIAZIDE 25 MG TABLET PO SCH (09:13)
[2018-09-04] MEDS: POTASSIUM CHLORIDE 10 MEQ CAPSULE.ER PO SCH (09:13)
[2018-09-04] MEDS: METOPROLOL TARTRATE 50 MG TABLET PO SCH ×2 (09:13→21:10)
[2018-09-04] MEDS: AMLODIPINE BESYLATE 10 MG TABLET PO SCH (09:13)
[2018-09-04] MEDS: OMEGA-3 ACID ETHYL ESTERS 1 GM CAPSULE PO SCH (09:14)
[2018-09-04] MEDS: CETIRIZINE 10 MG TABLET PO SCH (09:14)
[2018-09-04] MEDS: FENOFIBRATE NANOCRYSTALLIZED 145 MG TABLET PO SCH (09:14)
[2018-09-04] MEDS: MULTIVITAMIN TABLET PO SCH (09:14)
[2018-09-04] MEDS: AZITHROMYCIN 500 MG in DEXTROSE 5%-WATER 250 ML IV SCH (09:14)
--- NOTE | 2018-09-04 09:34 | PDOC PROGRESS REPORT ---
Subjective Progress Note for:: 09/04/18 Subjective:: JENNIFER CHAPARRO is a 62 year old male with a past medical history of hypertension, CVA with right-sided residual weakness and diabetes who was admitted 09/02/18 for sepsis secondary to RLL PNA. Patient is seen today resting in bed. He is awake, alert, oriented x3. He is presently on 2 L/min of oxygen. He denies any chest pain, shortness of breath or dyspnea at rest. He continues to have mostly nonproductive cough. He denies any nausea, vomiting or abdominal pain. He denies any fevers or chills overnight. He denies any significant arthralgias or myalgias. Remaining review systems are negative. Reason For Visit: PNEUMONIA Physical Exam Vital Signs: Temp Pulse Resp BP Pulse Ox 98.7 F 90 20 133/80 H 98 09/04/18 07:52 09/04/18 07:52 09/04/18 07:52 09/04/18 07:52 09/04/18 07:52 Intake & Output 09/03/18 09/04/18 09/05/18 06:59 06:59 06:59 Intake Total 6213 2620 Output Total 600 Balance 5613 2620 Weight 89.9 kg 89.9 kg General appearance: PRESENT: no acute distress, obese, well-developed, well- nourished Head exam: PRESENT: atraumatic, normocephalic Eye exam: PRESENT: conjunctiva pink, EOMI, PERRLA. ABSENT: scleral icterus Ear exam: PRESENT: normal external ear exam Mouth exam: PRESENT: moist, tongue midline Neck exam: ABSENT: carotid bruit, JVD, lymphadenopathy, thyromegaly Respiratory exam: PRESENT: crackles - Right base, symmetrical, unlabored Cardiovascular exam: PRESENT: RRR. ABSENT: diastolic murmur, rubs, systolic murmur Pulses: PRESENT: normal dorsalis pedis pul Vascular exam: PRESENT: normal capillary refill GI/Abdominal exam: PRESENT: normal bowel sounds, soft. ABSENT: distended, guarding, mass, organolmegaly, rebound, tenderness Rectal exam: PRESENT: deferred Extremities exam: PRESENT: full ROM. ABSENT: calf tenderness, clubbing, pedal edema Musculoskeletal exam: PRESENT: ambulatory Neurological exam: PRESENT: alert, awake, oriented to person, oriented to place, oriented to time, oriented to situation, CN II-XII grossly intact. ABSENT: motor sensory deficit Psychiatric exam: PRESENT: appropriate affect, normal mood. ABSENT: homicidal ideation, suicidal ideation Skin exam: PRESENT: dry, intact, warm. ABSENT: cyanosis, rash Results Laboratory Results: 09/03/18 05:05 09/03/18 05:05 09/01/18 09/01/18 21:33 21:33 Creatine Kinase 78 CK-MB (CK-2) < 0.22 Troponin I < 0.012 Impressions: Chest X-Ray 09/01/18 19:21 IMPRESSION: No evidence of acute cardiopulmonary disease. Head CT 09/01/18 19:23 IMPRESSION: 1. No acute intracranial findings. 2. Senescent changes with chronic microvascular ischemia. Abdomen/Pelvis CT 09/02/18 00:24 IMPRESSION: 1. Small consolidative opacity of the right lower lobe. Differential etiologies include infectious, inflammatory, and neoplastic processes. Recommend contrast CT chest surveillance including at 7-12 weeks following initiation of any clinically warranted therapy. 2. No acute abdominal findings. Assessment and Plan - Diagnosis (1) Pneumonia Qualifiers: Laterality: right Lung location: lower lobe of lung Is this a current diagnosis for this admission?: Yes Plan: Chest CT reveals a right lower lobe pneumonia. Blood cultures are negative at 24 hours We will continue IV antibiotic for 1 more day. We will attempt to wean him off oxygen today. Discussed with nursing staff. They will ambulate him in the hallway and check oxygen saturations with walking. (2) Hypokalemia Is this a current diagnosis for this admission?: Yes Plan: Replete and monitor. (3) Hypomagnesemia Is this a current diagnosis for this admission?: Yes Plan: Replete and monitor (4) Severe sepsis Is this a current diagnosis for this admission?: Yes Plan: Resolved. Vital signs are now stable, leukocytosis is trending down. Lactic acidosis is resolved, kidney function returned to normal. Sepsis secondary to right lower lobe pneumonia, present on admission, evidenced by blood cultures are negative fever, tachycardia, tachypnea, hypoxia on room air, leukocytosis, ANJEL, elevated lactic acid Blood cultures are negative to date. Urine culture reveals Klebsiella. Antibiotics as above. (5) Diabetes 1.5, managed as type 2 Is this a current diagnosis for this admission?: Yes Plan: Continue sliding scale insulin and home medication. He is eating normally. - Time Time Spent with patient: 25-34 minutes Medications reviewed and adjusted accordingly: Yes Anticipated discharge: Home Within: within 24 hours - Inpatient Certification Based on my medical assessment, after consideration of the patient's comorbidities, presenting symptoms, or acuity I expect that the services needed warrant INPATIENT care.: Yes I certify that my determination is in accordance with my understanding of Medicare's requirements for reasonable and necessary INPATIENT services [42 CFR 412.3e].: Yes Medical Necessity: Need for IV Antibiotics
[2018-09-04] MEDS ORDERED: IPRATROPIUM/ALBUTEROL 120 PUFF/4 GM MDI IH SCH (18:00)
[2018-09-05] MEDS: IPRATROPIUM/ALBUTEROL 0.5-2.5 MG/3 ML AMPUL NEB SCH ×2 (00:31→08:02)
[2018-09-05 04:05] VITALS: BP 123/80
[2018-09-05 05:17] LABS: HEMATOCRIT 37.5 % (37.9-51.0); HEMOGLOBIN 12.7 g/dL (13.5-17.0); MEAN CORPUSCULAR HEMOGLOBIN 28.6 pg (27.0-33.4); MEAN CORPUSCULAR HGB CONC 33.8 g/dL (32.0-36.0); MEAN CORPUSCULAR VOLUME 85 fl (80-97); PLATELET COUNT 298 10^3/uL (150-450); RED BLOOD COUNT 4.43 10^6/uL (4.35-5.55); RED CELL DISTRIBUTION WIDTH 13.3 % (11.5-14.0)
[2018-09-05 05:32] LABS: ANION GAP 12 (5-19); BLOOD UREA NITROGEN 16 mg/dL (7-20); CALCIUM 9.2 mg/dL (8.4-10.2); CARBON DIOXIDE 26 mmol/L (22-30); CHLORIDE 100 mmol/L (98-107); GLUCOSE 126 mg/dL (75-110); POTASSIUM 3.3 mmol/L (3.6-5.0); SODIUM 138.4 mmol/L (137-145)
[2018-09-05] MEDS: HEPARIN SOD (PORCINE) 5,000 UNIT/ML 1 ML VIAL SUBCUT SCH (05:38)
[2018-09-05] MEDS: PANTOPRAZOLE SODIUM 40 MG TABLET.DR PO SCH (05:38)
[2018-09-05] MEDS: LEVOTHYROXINE SODIUM 0.025 MG TABLET PO SCH (05:38)
[2018-09-05 06:09] LABS: ABSOLUTE MONOCYTES # (MANUAL) 0.4 10^3/uL (0.1-1.4); BAND NEUTROPHILS % (MANUAL) 3 % (3-5); BASOPHILS % (MANUAL) 0 % (0-2); EOSINOPHILS % (MANUAL) 7 % (0-6); LYMPHOCYTES % (MANUAL) 37 % (13-45); MONOCYTES % (MANUAL) 5 % (3-13); PLATELET COMMENT ADEQUATE; RBC MORPHOLOGY COMMENT NORMO-CYTIC/CHROMIC; SEGMENTED NEUTROPHILS % (MAN) 48 % (42-78); TOTAL CELLS COUNTED 100
[2018-09-05] MEDS: INSULIN LISPRO 100 UNIT/ML 3 ML VIAL SUBCUT SCH ×2 (08:14→11:07)
[2018-09-05] MEDS: FENOFIBRATE NANOCRYSTALLIZED 145 MG TABLET PO SCH (09:43)
[2018-09-05] MEDS: AMLODIPINE BESYLATE 10 MG TABLET PO SCH (09:43)
[2018-09-05] MEDS: OMEGA-3 ACID ETHYL ESTERS 1 GM CAPSULE PO SCH (09:43)
[2018-09-05] MEDS: ASPIRIN/DIPYRIDAMOLE 25-200 MG 1 CAP.SR CPMP.12HR PO SCH (09:44)
[2018-09-05] MEDS: METOPROLOL TARTRATE 50 MG TABLET PO SCH (09:44)
[2018-09-05] MEDS: CETIRIZINE 10 MG TABLET PO SCH (09:44)
[2018-09-05] MEDS: HYDROCHLOROTHIAZIDE 25 MG TABLET PO SCH (09:44)
[2018-09-05] MEDS: MULTIVITAMIN TABLET PO SCH (09:44)
[2018-09-05] MEDS: AZITHROMYCIN 500 MG in DEXTROSE 5%-WATER 250 ML IV SCH (09:50)
[2018-09-05] MEDS: CEFTRIAXONE SODIUM 1,000 MG in DEXTROSE 5%-WATER 50 ML IV SCH (09:50)
[2018-09-05] MEDS ORDERED: POTASSIUM CHLORIDE 10 MEQ CAPSULE.ER PO SCH (10:00)
--- NOTE | 2018-09-05 13:26 | PDOC DISCHARGE SUMMARY ---
General - Admit/Disc Date/PCP Admission Date/Primary Care Provider: 09/02/18 04:[facility] Discharge Date: 09/05/18 - Discharge Diagnosis (1) Pneumonia Is this a current diagnosis for this admission?: Yes Summary: Chest CT reveals a right lower lobe pneumonia. Blood cultures are negative at 24 hours We will continue IV antibiotic for 1 more day. We will attempt to wean him off oxygen today. Discussed with nursing staff. They will ambulate him in the hallway and check oxygen saturations with walking. 09/05/[id number]-old male admitted with right lower lobe pneumonia present on CT scan blood cultures are negative patient is afebrile pulse ox is 96% on room air is going to be discharged on pupil levo floxacillin 500 mg p.o. daily for 10 days. (2) Hypokalemia Is this a current diagnosis for this admission?: Yes Summary: 09/05/2018-potassium is 3.3 patient is on 40 mg of p.o. potassium dose was incr eased to 40 mg p.o. 1 dose today hypokalemia is resolving. (3) Severe sepsis Is this a current diagnosis for this admission?: Yes Summary: Plan: Resolved. Vital signs are now stable, leukocytosis is trending down. Lactic acidosis is resolved, kidney function returned to normal. Sepsis secondary to right lower lobe pneumonia, present on admission, evidenced by blood cultures are negative fever, tachycardia, tachypnea, hypoxia on room air, leukocytosis, ANJEL, elevated lactic acid Blood cultures are negative to date. Urine culture reveals Klebsiella. Antibiotics as above. 03/08/2018-patient admitted with severe sepsis which was resolved. Blood pressures are stable he is not tachycardic anymore urine culture is positive for Klebsiella pneumonia. pt is going home on levo floxacillin today. - Additional Information Resuscitation Status: Full Code Discharge Diet: Diabetic Discharge Activity: Activity As Tolerated Prescriptions: Levofloxacin [Levaquin 500 mg Tablet] 500 mg PO DAILY #10 tablet Home Medications: Albuterol Sulfate [Proair HFA Inhalation Aerosol 8.5 gm MDI] 2 puff IH BIDP PRN 09/02/18 Amlodipine Besylate [Norvasc 10 mg Tablet] 10 mg PO DAILY 09/02/18 Aspirin/Dipyridamole [Aggrenox 25 mg/200 mg Capsule SA] 1 cap.sr PO DAILY 09/02/18 Cetirizine HCl [Zyrtec 10 mg Tablet] 10 mg PO DAILY 09/02/18 Fenofibrate Nanocrystallized [Tricor 145 mg Tablet] 145 mg PO DAILY 09/02/18 Hydrochlorothiazide [Hydrodiuril 25 mg Tablet] 25 mg PO QAM 09/02/18 Ipratropium/Albuterol Sulfate [Combivent Inhaler] 1 puff IH Q6 09/02/18 Krill/[place]-3/Dha/Epa/Lipids [[place]-3 Krill Oil 500 mg Sfgl] 1 each PO DAILY 09/02/18 Levothyroxine Sodium [Synthroid 0.025 mg Tablet] 0.0125 mg PO Q6AM 09/02/18 Metformin HCl [Glucophage 500 mg Tablet] 1,000 mg PO DAILY 09/02/18 Metoprolol Tartrate [Lopressor 50 mg Tablet] 50 mg PO Q12 09/02/18 Multivitamin with Minerals [One Daily Plus Minerals] 1 each PO DAILY 09/02/18 Omeprazole 40 mg PO Q6AM 09/02/18 Potassium Chloride [Klor-Con 10 Meq Capsule ER] 20 meq PO DAILY 09/02/18 Levofloxacin [Levaquin 500 mg Tablet] 500 mg PO DAILY #10 tablet 09/05/18 History of Present Illness History of Present Illness: JENNIFER CHAPARRO is a 62 year old male 62 year old male with a past medical history of hypertension, CVA with right- sided residual weakness and diabetes who was admitted 09/02/18 for sepsis secondary to RLL PNA. Patient is seen today resting in bed. He is awake, alert, oriented x3. He is presently on 2 L/min of oxygen. He denies any chest pain, shortness of breath or dyspnea at rest. He continues to have mostly nonproductive cough. He denies any nausea, vomiting or abdominal pain. He denies any fevers or chills overnight. He denies any significant arthralgias or myalgias. Remaining review systems are negative. Hospital Course Hospital Course: 09/05/2018-patient admitted with shortness of breath fevers found to have pneu monia treated appropriately blood cultures are negative. Urine culture is positive for enterococcus and Klebsiella pneumonia sensitivity to levofloxacin and patient is going home on levofloxacin for 10 days. Physical Exam Vital Signs: Temp Pulse Resp BP Pulse Ox 98.4 F 81 16 123/80 91 L 09/05/18 10:10 09/05/18 10:10 09/05/18 10:10 09/05/18 10:10 09/05/18 10:10 Intake & Output 09/04/18 09/05/18 09/06/18 06:59 06:59 06:59 Intake Total 2620 1694 540 Balance 2620 1694 540 Weight 89.9 kg 87.6 kg General appearance: PRESENT: no acute distress Head exam: PRESENT: atraumatic Eye exam: PRESENT: PERRLA Mouth exam: PRESENT: moist, tongue midline Teeth exam: PRESENT: poor dentation Neck exam: ABSENT: carotid bruit, JVD, lymphadenopathy, thyromegaly Respiratory exam: PRESENT: decreased breath sounds Cardiovascular exam: PRESENT: RRR. ABSENT: diastolic murmur, rubs, systolic murmur Rectal exam: PRESENT: deferred Extremities exam: PRESENT: full ROM. ABSENT: calf tenderness, clubbing, pedal edema Neurological exam: PRESENT: alert, awake, oriented to person, oriented to place, oriented to time, oriented to situation, CN II-XII grossly intact. ABSENT: motor sensory deficit Psychiatric exam: PRESENT: appropriate affect, normal mood. ABSENT: homicidal ideation, suicidal ideation Results Laboratory Results: 09/05/18 05:00 09/05/18 05:00 09/05/18 09/05/18 05:00 05:00 WBC 8.0 RBC 4.43 Hgb 12.7 L Hct 37.5 L MCV 85 MCH 28.6 MCHC 33.8 RDW 13.3 Plt Count 298 Seg Neutrophils % Not Reportable Lymphocytes % Not Reportable Monocytes % Not Reportable Eosinophils % Not Reportable Basophils % Not Reportable Absolute Neutrophils Not Reportable Absolute Lymphocytes Not Reportable Absolute Monocytes Not Reportable Absolute Eosinophils Not Reportable Absolute Basophils Not Reportable Sodium 138.4 Potassium 3.3 L Chloride 100 Carbon Dioxide 26 Anion Gap 12 BUN 16 Creatinine 1.05 Est GFR ( Amer) > 60 Est GFR (Non-Af Amer) > 60 Glucose 126 H Calcium 9.2 Magnesium 1.8 09/01/18 19:54 Clean Catch Midstream Urine Culture - Final Klebsiella Pneumoniae Enterococcus Faecalis(Group D) 09/01/18 09/01/18 21:33 21:33 Creatine Kinase 78 CK-MB (CK-2) < 0.22 Troponin I < 0.012 Impressions: Chest X-Ray 09/01/18 19:21 IMPRESSION: No evidence of acute cardiopulmonary disease. Head CT 09/01/18 19:23 IMPRESSION: 1. No acute intracranial findings. 2. Senescent changes with chronic microvascular ischemia. Abdomen/Pelvis CT 09/02/18 00:24 IMPRESSION: 1. Small consolidative opacity of the right lower lobe. Differential etiologies include infectious, inflammatory, and neoplastic processes. Recommend contrast CT chest surveillance including at 7-12 weeks following initiation of any clinically warranted therapy. 2. No acute abdominal findings. Qualifiers - * PATIENT BEING DISCHARGED WITH ANY OF THE FOLLOWING DIAGNOSIS: No VTE patient discharged on overlapping Therapy?: No Acute Heart Failure - Is this a Heart Failure Patient?: No Plan Time Spent: Greater than 30 Minutes
[2018-09-06] MEDS ORDERED: LEVOFLOXACIN 500 MG TABLET PO SCH (11:00)
== END 2018-09-05 12:37 | disposition home or self-care (01) | DRG 871 ==
LOC: ER 16:48 → EH 09-02 04:13 → 4N 09-02 06:30
PROVIDERS: ADMIT Internal Medicine; ATTEND Internal Medicine
DX: A41.9 Sepsis, unspecified organism (principal); J18.1 Lobar pneumonia, unspecified organism; R65.20 Severe sepsis without septic shock; E78.00 Pure hypercholesterolemia, unspecified; I10 Essential (primary) hypertension; J44.9 Chronic obstructive pulmonary disease, unspecified; E11.8 Type 2 diabetes mellitus with unspecified complications; E03.9 Hypothyroidism, unspecified; E87.6 Hypokalemia; E83.42 Hypomagnesemia; Z86.73 Personal history of transient ischemic attack (TIA), and cerebral infarction without residual deficits
CPT/HCPCS: 36415; 70450; 71046; 74177; 80048; 80053; 81001; 82550; 82553; 82803; 82962; 83605; 83735; 84484; 85025; 85610; 85730; 87040; 87086; 87088; 87186; 93005; 93010; 94640; 94799; 96365; 99285; J0456; J0692; J0696; J1644; J1815; J3475; J3480; J3490; J7030; J7060; J7620

== ENCOUNTER 2019-04-24 19:04 | Observation (INO) | payer OTHER ==
[2019-04-24 20:59] LABS: ABSOLUTE EOSINOPHILS # (AUTO) 0.1 10^3/uL (0.0-0.6); ABSOLUTE LYMPHOCYTES (AUTO) 1.3 10^3/uL (0.5-4.7); ABSOLUTE MONOCYTES (AUTO) 0.6 10^3/uL (0.1-1.4); ABSOLUTE NEUT (AUTO) 3.6 10^3/uL (1.7-8.2); BASOPHILS % (AUTO) 0.8 % (0-2); EOSINOPHILS % (AUTO) 1.4 % (0-6); HEMOGLOBIN 15.4 g/dL (13.5-17.0); LYMPHOCYTES % (AUTO) 23.4 % (13-45); MEAN CORPUSCULAR HEMOGLOBIN 29.4 pg (27.0-33.4); MEAN CORPUSCULAR HGB CONC 34.3 g/dL (32.0-36.0); MEAN CORPUSCULAR VOLUME 86 fl (80-97); MONOCYTES % (AUTO) 10.4 % (3-13); PLATELET COUNT 231 10^3/uL (150-450); RED BLOOD COUNT 5.25 10^6/uL (4.35-5.55); RED CELL DISTRIBUTION WIDTH 13.5 % (11.5-14.0); TOTAL CELLS COUNTED % (AUTO) 100 %; WHITE BLOOD COUNT 5.6 10^3/uL (4.0-10.5)
--- NOTE | 2019-04-24 21:14 | RADIOLOGY REPORT (SQ) ---
EXAM DESCRIPTION: XR CHEST 1 VIEW COMPLETED DATE/TME: 04/24/2019 20:19 CLINICAL HISTORY: 63 years, Male, sob COMPARISON: September 01, 2018 NUMBER OF VIEWS: Single TECHNIQUE: LIMITATIONS: None. FINDINGS: Cardiomediastinal silhouette is prominent but stable. Lungs are grossly clear. No effusion. No pneumothorax. Imaging is overpenetrated IMPRESSION: Lungs grossly clear copyright 2010 [employer]- All Rights Reserved
[2019-04-24 21:22] LABS: ALBUMIN 4.4 g/dL (3.5-5.0); ALKALINE PHOSPHATASE 71 U/L (38-126); ANION GAP 13 (5-19); ASPARTATE AMINO TRANSFERASE 84 U/L (17-59); BILIRUBIN,DIRECT 0.4 mg/dL (0.0-0.4); BILIRUBIN,TOTAL 0.4 mg/dL (0.2-1.3); BLOOD UREA NITROGEN 17 mg/dL (7-20); CALCIUM 9.6 mg/dL (8.4-10.2); CARBON DIOXIDE 29 mmol/L (22-30); CHLORIDE 93 mmol/L (98-107); CREATINE KINASE 494 U/L (55-170); GLUCOSE 121 mg/dL (75-110); POTASSIUM 3.5 mmol/L (3.6-5.0); TOTAL PROTEIN 7.6 g/dL (6.3-8.2)
[2019-04-24 21:36] LABS: CREATINE KINASE MB 0.56 ng/mL (<4.55); NT PRO BNP 29 pg/mL (<125)
[2019-04-24] MEDS ORDERED: METHYLPREDNISOLONE INJ 125 MG/2 ML SDV IV ONE (21:41)
[2019-04-24] MEDS ORDERED: IPRATROPIUM/ALBUTEROL 0.5-2.5 MG/3 ML AMPUL NEB ONE (21:42)
[2019-04-24] MEDS ORDERED: AZITHROMYCIN 250 MG TABLET PO ONE (21:44)
--- NOTE | 2019-04-24 21:45 | ER Document Report ---
ED Respiratory Problem - General Chief Complaint: Shortness Of Breath Stated Complaint: SHORTNESS OF BREATH Time Seen by Provider: 04/24/19 21:19 Primary Care Provider: THA,FORTINO [Primary Care Provider] - Follow up as needed Notes: 63-year-old man presents to the emergency department with a complaint of cough congestion history of asthma/COPD. States that he began having some pain with the cough and was diagnosed with a pneumonia last year. He presents today to be evaluated for possible pneumonia. He complains of dyspnea on exertion with increasing shortness of breath activities. He denies chest pain. TRAVEL OUTSIDE OF THE [place] IN LAST 30 DAYS: No - Related Data Allergies/Adverse Reactions: No Known Allergies Allergy (Unverified 09/01/18 19:14) Past Medical History - Social History Smoking Status: Former Smoker Family History: Malignancy Patient has suicidal ideation: No Patient has homicidal ideation: No - Past Medical History Cardiac Medical History: Reports: Hx Hypercholesterolemia, Hx Hypertension Pulmonary Medical History: Reports: Hx COPD Neurological Medical History: Reports: Hx Cerebrovascular Accident Endocrine Medical History: Reports: Hx Diabetes Mellitus Type 2 - diet controlled, Hx Hypothyroidism Renal/ Medical History: Denies: Hx Peritoneal Dialysis Review of Systems - Review of Systems Notes: Constitutional: Negative for fever. HENT: Negative for sore throat. Eyes: Negative for visual changes. Cardiovascular: Negative for chest pain. Respiratory: + shortness of breath + cough. Gastrointestinal: Negative for abdominal pain, vomiting or diarrhea. Genitourinary: Negative for dysuria. Musculoskeletal: Negative for back pain. Skin: Negative for rash. Neurological: Negative for headaches, weakness or numbness. 10 point ROS negative except as marked above and in HPI. Physical Exam - Vital signs Vitals: Temp Pulse Resp BP Pulse Ox 99.0 F 88 18 130/81 H 93 04/24/19 19:10 04/24/19 19:10 04/24/19 19:10 04/24/19 19:10 04/24/19 19:10 - Notes Notes: PHYSICAL EXAMINATION: Physical Exam: General: Well-nourished well-developed 63-year-old male in respiratory acute distress HEENT: NC/AT, pupils equal round and reactive to light, MM moist,nares clear, oropharynx clear, airway patent Neck: supple, no adenopathy, no masses. Good range of motion Lungs: Lateral inspiratory wheezing with prolonged expiratory phase. CVS: Regular rate and rhythm no murmur gallop or rub Abdomen: Soft, active, nontender, no masses, no hepatosplenomegaly Ext: No edema, clubbing or cyanosis. Neuro: Alert and responsive, moving all 4 extremities on command, cranial nerves intact, no focal findings Skin: Intact no open lesions, no rash PSYCH: Normal mood, normal affect. Course - Re-evaluation Re-evalutation: 04/25/19 01:32 Patient is given nebulizer treatments, IV Solu-Medrol, oral Zithromax and once taken off of the nasal cannula O2 he desaturates down to 89%. A discussion with the patient and his daughter I have explained that he probably needs home O2 given his history of dyspnea with exertion and worsening respiratory function. He does not have a home nebulizer unit, uses Combivent inhaler and albuterol inhalers. He is not on a steroid inhaler or oral steroids. Was treated for pneumonia and the latter part of 2019. Chest x-ray tonight is negative. He will be admitted to the hospital for exacerbation of COPD with hypoxia. I spoke with the hospitalist Dr. Camargo, the patient will be put in an observation bed on telemetry. - Vital Signs Vital signs: Temp Pulse Resp BP Pulse Ox 99.0 F 88 21 H 124/85 94 04/24/19 19:10 04/24/19 19:10 04/25/19 01:00 04/24/19 20:29 04/25/19 01:00 - Laboratory Result Diagrams: 04/24/19 20:48 04/24/19 20:48 Laboratory results interpreted by me: 04/24/19 04/24/19 20:48 23:31 Sodium 135.2 L Potassium 3.5 L Chloride 93 L Glucose 121 H AST 84 H ALT 87 H Creatine Kinase 494 H Urine Ascorbic Acid 40 H 04/25/19 01:34 I have reviewed laboratory data and used this information for the treatment decisions regarding the patient. - Diagnostic Test Radiology reviewed: Image reviewed, Reports reviewed - Chest x-ray: Cardiomegaly, no infiltrates, no effusion. - EKG Interpretation by Al EKG shows normal: Sinus rhythm - Rate 90, right bundle branch block, no acute ST or T wave abnormalities noted. Discharge - Discharge Clinical Impression: COPD with exacerbation, Hypoxia, Respiratory tract infection, Bronchitis Disposition: ADMITTED OBSERVATION Admitting Provider: Raman (Hospitalist) Unit Admitted: Telemetry [facility]errals: [facility] [Primary [facility]] - Follow up as needed
[2019-04-24 21:53] LABS: TROPONIN I < 0.012 ng/mL
[2019-04-24] MEDS ORDERED: LEVALBUTEROL HCL NEB 1.25 MG/3 ML AMPUL NEB ONE (23:44)
[2019-04-24 23:54] LABS: APPEARANCE,URINE SLIGHTLY-CLOUDY; BILIRUBIN,URINE NEGATIVE (NEGATIVE); COLOR,URINE YELLOW; GLUCOSE, URINE NEGATIVE (NEGATIVE); KETONES,URINE NEGATIVE (NEGATIVE); LEUKOCYTE ESTERASE,URINE NEGATIVE (NEGATIVE); NITRITE,URINE NEGATIVE (NEGATIVE); PROTEIN,URINE NEGATIVE (NEGATIVE); URINE SPECIFIC GRAVITY 1.016; UROBILINOGEN,URINE NEGATIVE mg/dL (<2.0)
[2019-04-25 00:02] LABS: ADD MANUAL MICROSCOPIC YES
[2019-04-25] MEDS ORDERED: HYDRALAZINE HCL INJ/PF 20 MG/1 ML SDV IV PRN (01:31)
[2019-04-25] MEDS ORDERED: IPRATROPIUM/ALBUTEROL 0.5-2.5 MG/3 ML AMPUL NEB PRN (01:31)
[2019-04-25] MEDS ORDERED: ACETAMINOPHEN 325 MG TABLET PO PRN (01:31)
[2019-04-25] MEDS ORDERED: GUAIFENESIN SYRP 200 MG/10 ML UDC PO PRN (01:31)
[2019-04-25] MEDS ORDERED: GLUCAGON,HUMAN RECOMB 1 MG INJ IM PRN (01:33)
[2019-04-25] MEDS ORDERED: DEXTROSE 50%-WATER 25 GM/50 ML DISP.SYRIN IV PRN ×2 (01:33)
[2019-04-25] MEDS ORDERED: DEXTROSE 40% GEL 15 GM TUBE PO PRN ×2 (01:33)
[2019-04-25] MEDS ORDERED: FLUTICASONE NASAL SPRAY 50 MCG/SPRY 120 SPRAY/16 GM ONE (02:23)
[2019-04-25] MEDS: PREDNISONE 20 MG TABLET PO SCH ×3 (02:28→18:24)
[2019-04-25] MEDS: FLUTICASONE NASAL SPRAY 50 MCG/SPRY 120 SPRAY/16 GM NASL SCH ×3 (02:29→22:33)
[2019-04-25] MEDS: CHLORPHENIRAMINE MALEATE 4 MG TABLET PO SCH ×4 (05:39→23:00)
[2019-04-25] MEDS: HEPARIN SOD (PORCINE) 5,000 UNIT/ML 1 ML VIAL SUBCUT SCH ×3 (05:41→22:33)
--- NOTE | 2019-04-25 06:45 | PDOC H&P ---
History of Present Illness Admission Date/PCP: 04/25/19 01:41 [facility] Patient complains of: Shortness of breath History of Present Illness: JENNIFER CHAPARRO is a 63 year old male with a past medical history of hypertension, CVA with residual right-sided weakness, hypertension, diabetes,, GERD, COPD and allergic sinusitis. He presents with 48 hours of shortness of breath and a nonproductive cough prompting evaluation emergency room where he is found to have hypoxia with an oxygen saturation of 88% on room air requiring oxygen. Chest x-ray is unremarkable. He denies fever, chest pain, nausea vomiting, rhinorrhea or sore throat. He denies recent antibiotic use. Past Medical History Cardiac Medical History: Reports: Hyperlipidema, Hypertension Denies: Myocardial Infarction Pulmonary Medical History: Reports: Chronic Obstructive Pulmonary Disease (COPD) Endocrine Medical History: Reports: Diabetes Mellitus Type 2 - diet controlled, Hypothyroidism GI Medical History: Reports: Gastroesophageal Reflux Disease Psychiatric Medical History: Denies: Depression Past Surgical History Past Surgical History: Reports: None Social History Information Source: Patient Lives with: Family Smoking Status: Former Smoker Frequency of Alcohol Use: None Hx Recreational Drug Use: No Drugs: None - Advance Directive Resuscitation Status: Full Code Family History Family History: Malignancy Parental Family History Reviewed: Yes Children Family History Reviewed: Yes Sibling(s) Family History Reviewed.: Yes Medication/Allergy Home Medications: Albuterol Sulfate [Proair HFA Inhalation Aerosol 8.5 gm MDI] 2 puff IH BIDP PRN 09/02/18 Amlodipine Besylate [Norvasc 10 mg Tablet] 10 mg PO DAILY 09/02/18 Aspirin/Dipyridamole [Aggrenox 25 mg/200 mg Capsule SA] 1 cap.sr PO DAILY 09/02/18 Cetirizine HCl [Zyrtec 10 mg Tablet] 10 mg PO DAILY 09/02/18 Fenofibrate Nanocrystallized [Tricor 145 mg Tablet] 145 mg PO DAILY 09/02/18 Hydrochlorothiazide [Hydrodiuril 25 mg Tablet] 25 mg PO QAM 09/02/18 Ipratropium/Albuterol Sulfate [Combivent Inhaler] 1 puff IH Q6 09/02/18 Krill/[place]-3/Dha/Epa/Lipids [[place]-3 Krill Oil 500 mg Sfgl] 1 each PO DAILY 09/02/18 Levothyroxine Sodium [Synthroid 0.025 mg Tablet] 0.0125 mg PO Q6AM 09/02/18 Metformin HCl [Glucophage 500 mg Tablet] 1,000 mg PO DAILY 09/02/18 Metoprolol Tartrate [Lopressor 50 mg Tablet] 50 mg PO Q12 09/02/18 Multivitamin with Minerals [One Daily Plus Minerals] 1 each PO DAILY 09/02/18 Omeprazole 40 mg PO Q6AM 09/02/18 Potassium Chloride [Klor-Con 10 Meq Tablet ER] 20 meq PO DAILY 09/02/18 Levofloxacin [Levaquin 500 mg Tablet] 500 mg PO DAILY #10 tablet 09/05/18 Allergies/Adverse Reactions: No Known Allergies Allergy (Unverified 09/01/18 19:14) Review of Systems Constitutional: ABSENT: chills, fever(s), headache(s), weight gain, weight loss Eyes: ABSENT: visual disturbances Ears: ABSENT: hearing changes Cardiovascular: ABSENT: chest pain, dyspnea on exertion, edema, orthropnea, palpitations Respiratory: ABSENT: cough, hemoptysis Gastrointestinal: ABSENT: abdominal pain, constipation, diarrhea, hematemesis, hematochezia, nausea, vomiting Genitourinary: ABSENT: dysuria, hematuria Musculoskeletal: ABSENT: joint swelling Integumentary: ABSENT: rash, wounds Neurological: ABSENT: abnormal gait, abnormal speech, confusion, dizziness, focal weakness, syncope Psychiatric: ABSENT: anxiety, depression, homidical ideation, suicidal ideation Endocrine: ABSENT: cold intolerance, heat intolerance, polydipsia, polyuria Hematologic/Lymphatic: ABSENT: easy bleeding, easy bruising Physical Exam Vital Signs: Temp Pulse Resp BP Pulse Ox 97.9 F 98 17 124/85 94 04/25/19 02:47 04/25/19 03:23 04/25/19 02:47 04/24/19 20:29 04/25/19 02:47 Intake & Output 04/23/19 04/24/19 04/25/19 11:59 11:59 11:59 Output Total 220 Balance -220 Weight 83.9 kg General appearance: PRESENT: cooperative, mild distress, well-developed, well- nourished Head exam: PRESENT: atraumatic, normocephalic Eye exam: PRESENT: conjunctiva pink, EOMI, PERRLA. ABSENT: scleral icterus Ear exam: PRESENT: normal external ear exam Mouth exam: PRESENT: moist, tongue midline Neck exam: ABSENT: carotid bruit, JVD, lymphadenopathy, thyromegaly Respiratory exam: PRESENT: accessory muscle use, crackles, prolonged expiratory phas. ABSENT: rales, rhonchi, wheezes Cardiovascular exam: PRESENT: RRR. ABSENT: diastolic murmur, rubs, systolic murmur Pulses: PRESENT: normal dorsalis pedis pul Vascular exam: PRESENT: normal capillary refill GI/Abdominal exam: PRESENT: normal bowel sounds, soft. ABSENT: distended, guarding, mass, organolmegaly, rebound, tenderness Rectal exam: PRESENT: deferred Extremities exam: PRESENT: full ROM. ABSENT: calf tenderness, clubbing, pedal edema Neurological exam: PRESENT: alert, awake, oriented to person, oriented to place, oriented to time, oriented to situation, CN II-XII grossly intact. ABSENT: motor sensory deficit Psychiatric exam: PRESENT: appropriate affect, normal mood. ABSENT: homicidal ideation, suicidal ideation Skin exam: PRESENT: dry, intact, warm. ABSENT: cyanosis, rash Results Laboratory Results: 04/24/19 20:48 04/24/19 20:48 04/24/19 04/24/19 04/24/19 20:48 20:48 23:31 WBC 5.6 RBC 5.25 Hgb 15.4 Hct 45.0 MCV 86 MCH 29.4 MCHC 34.3 RDW 13.5 Plt Count 231 Seg Neutrophils % 64.0 Sodium 135.2 L Potassium 3.5 L Chloride 93 L Carbon Dioxide 29 Anion Gap 13 BUN 17 Creatinine 0.88 Est GFR ( Amer) > 60 Glucose 121 H Calcium 9.6 Total Bilirubin 0.4 AST 84 H Alkaline Phosphatase 71 Total Protein 7.6 Albumin 4.4 Urine Color YELLOW Urine Appearance SLIGHTLY-CLOUDY Urine pH 5.0 Ur Specific [place] 1.016 Urine Protein NEGATIVE Urine Glucose (UA) NEGATIVE Urine Ketones NEGATIVE Urine Blood NEGATIVE Urine Nitrite NEGATIVE Ur Leukocyte Esterase NEGATIVE Ur Squamous Epith Cells RARE 04/24/19 04/24/19 20:48 20:48 Creatine Kinase 494 H CK-MB (CK-2) 0.56 Troponin I < 0.012 NT-Pro-B Natriuret Pep 29 Impressions: Chest X-Ray 04/24/19 20:19 IMPRESSION: Lungs grossly clear copyright 2011 [employer]- All Rights Reserved Assessment and Plan - Diagnosis (1) Bronchitis Is this a current diagnosis for this admission?: Yes Plan: Trial empiric antibiotic, prednisone, albuterol, Atrovent, flutter valve and i ncentive spirometry (2) COPD with exacerbation Is this a current diagnosis for this admission?: Yes Plan: Please see #1, ambulating pulse oximetry for oxygen supplementation requirement, (3) Hypoxia Is this a current diagnosis for this admission?: Yes Plan: Likely secondary to exacerbation of COPD although possible undiagnosed pulmonary fibrosis given coarse crackles on exam (4) Diabetes 1.5, managed as type 2 Is this a current diagnosis for this admission?: Yes Plan: Outpatient regiment with Humalog sliding scale ordered. - Time Time Spent with patient: 25-34 minutes - Inpatient Certification Medical Necessity: Need Close Monitoring Due to Risk of Patient Decompensation
[2019-04-25] MEDS: IPRATROPIUM/ALBUTEROL 0.5-2.5 MG/3 ML AMPUL NEB SCH ×3 (07:48→23:37)
[2019-04-25] MEDS: INSULIN LISPRO 100 UNIT/ML 3 ML VIAL SUBCUT SCH ×3 (08:57→18:24)
[2019-04-25] MEDS: LEVOFLOXACIN 750 MG/D5W RTU 750 MG/150 ML RTUPB IV SCH (09:09)
[2019-04-25 09:22] LABS: ABSOLUTE LYMPHOCYTES (AUTO) 0.6 10^3/uL (0.5-4.7); ABSOLUTE MONOCYTES (AUTO) 0.1 10^3/uL (0.1-1.4); ABSOLUTE NEUT (AUTO) 2.9 10^3/uL (1.7-8.2); BASOPHILS % (AUTO) 0.2 % (0-2); HEMATOCRIT 41.7 % (37.9-51.0); HEMOGLOBIN 14.3 g/dL (13.5-17.0); LYMPHOCYTES % (AUTO) 16.5 % (13-45); MEAN CORPUSCULAR HEMOGLOBIN 29.2 pg (27.0-33.4); MEAN CORPUSCULAR HGB CONC 34.3 g/dL (32.0-36.0); MEAN CORPUSCULAR VOLUME 85 fl (80-97); MONOCYTES % (AUTO) 2.9 % (3-13); PLATELET COUNT 205 10^3/uL (150-450); RED CELL DISTRIBUTION WIDTH 13.7 % (11.5-14.0); SEGMENTED NEUTROPHILS % (AUTO) 80.4 % (42-78); TOTAL CELLS COUNTED % (AUTO) 100 %; WHITE BLOOD COUNT 3.7 10^3/uL (4.0-10.5)
--- NOTE | 2019-04-25 11:28 | PDOC PROGRESS REPORT ---
Subjective Progress Note for:: 04/25/19 Subjective:: 63 year old male with a past medical history of hypertension, CVA with residual right-sided weakness, hypertension, diabetes,, GERD, COPD and allergic sinusitis. He presents with 48 hours of shortness of breath and a nonproductive cough prompting evaluation emergency room where he is found to have hypoxia with an oxygen saturation of 88% on room air requiring oxygen. Chest x-ray is unremarkable. He denies fever, chest pain, nausea vomiting, rhinorrhea or sore throat. He denies recent antibiotic use. 04/[id number]-bbfs-old male with history of diabetes mellitus, hypertension, CVA with right-sided weakness, COPD admitted with shortness of breath. Patient found to be hypoxic in the emergency room. Pulse ox is 94% on 2 L this morning. Patient is not on home oxygen. Chest x-ray was a normal study. Plan to do the CT of the chest with contrast today for further information.. Reason For Visit: COPD WITH EXACERBATION BRONCHITIS Physical Exam Vital Signs: Temp Pulse Resp BP Pulse Ox 97.9 F 96 16 124/85 95 04/25/19 02:47 04/25/19 07:45 04/25/19 07:45 04/24/19 20:29 04/25/19 07:45 Intake & Output 04/24/19 04/25/19 04/26/19 06:59 06:59 06:59 Intake Total 120 Output Total 220 Balance -220 120 Weight 83.9 kg General appearance: PRESENT: no acute distress, obese Head exam: PRESENT: atraumatic Eye exam: PRESENT: PERRLA Mouth exam: PRESENT: moist, tongue midline Teeth exam: PRESENT: poor dentation Neck exam: ABSENT: carotid bruit, JVD, lymphadenopathy, thyromegaly Respiratory exam: PRESENT: decreased breath sounds Cardiovascular exam: PRESENT: RRR. ABSENT: diastolic murmur, rubs, systolic murmur GI/Abdominal exam: PRESENT: normal bowel sounds, soft. ABSENT: distended, guarding, mass, organolmegaly, rebound, tenderness Rectal exam: PRESENT: deferred Extremities exam: PRESENT: full ROM. ABSENT: calf tenderness, clubbing, pedal edema Neurological exam: PRESENT: alert, awake, oriented to person, oriented to place, oriented to time, oriented to situation, CN II-XII grossly intact. ABSENT: motor sensory deficit Psychiatric exam: PRESENT: appropriate affect, normal mood. ABSENT: homicidal ideation, suicidal ideation Results Laboratory Results: 04/25/19 08:59 04/24/19 20:48 04/24/19 04/24/19 04/24/19 20:48 20:48 23:31 WBC 5.6 RBC 5.25 Hgb 15.4 Hct 45.0 MCV 86 MCH 29.4 MCHC 34.3 RDW 13.5 Plt Count 231 Seg Neutrophils % 64.0 Sodium 135.2 L Potassium 3.5 L Chloride 93 L Carbon Dioxide 29 Anion Gap 13 BUN 17 Creatinine 0.88 Est GFR ( Amer) > 60 Glucose 121 H Calcium 9.6 Total Bilirubin 0.4 AST 84 H Alkaline Phosphatase 71 Total Protein 7.6 Albumin 4.4 Urine Color YELLOW Urine Appearance SLIGHTLY-CLOUDY Urine pH 5.0 Ur Specific [place] 1.016 Urine Protein NEGATIVE Urine Glucose (UA) NEGATIVE Urine Ketones NEGATIVE Urine Blood NEGATIVE Urine Nitrite NEGATIVE Ur Leukocyte Esterase NEGATIVE Ur Squamous Epith Cells RARE 04/25/19 08:59 WBC 3.7 L RBC 4.90 Hgb 14.3 Hct 41.7 MCV 85 MCH 29.2 MCHC 34.3 RDW 13.7 Plt Count 205 Seg Neutrophils % 80.4 H Sodium Potassium Chloride Carbon Dioxide Anion Gap BUN Creatinine Est GFR ( Amer) Glucose Calcium Total Bilirubin AST Alkaline Phosphatase Total Protein Albumin Urine Color Urine Appearance Urine pH Ur Specific [place] Urine Protein Urine Glucose (UA) Urine Ketones Urine Blood Urine Nitrite Ur Leukocyte Esterase Ur Squamous Epith Cells 04/24/19 04/24/19 20:48 20:48 Creatine Kinase 494 H CK-MB (CK-2) 0.56 Troponin I < 0.012 NT-Pro-B Natriuret Pep 29 Impressions: Chest X-Ray 04/24/19 20:19 IMPRESSION: Lungs grossly clear copyright 2010 [employer]- All Rights Reserved Assessment and Plan - Diagnosis (1) Bronchitis Is this a current diagnosis for this admission?: Yes Plan: Trial empiric antibiotic, prednisone, albuterol, Atrovent, flutter valve and incentive spirometry 04/25/2019-patient is presently on IV levo floxacillin, prednisone p.o. 20 mg twice a day, and flutter valve therapy, incentive spirometry, albuterol and Atrovent. Pulse ox is 94% on 2 L this morning. Plan to do the CT of the chest to get further information about hypoxia and rule out any malignancy. blood Cultures are pending. (2) COPD with exacerbation Is this a current diagnosis for this admission?: Yes Plan: Please see #1, ambulating pulse oximetry for oxygen supplementation requirement, 04/25/2019-patient admitted with COPD exacerbation he is ex-smoker. Plan is to continue scheduled and as needed nebulizations and p.o. prednisone. Plan to check for home oxygen requirements. (3) Hypoxia Is this a current diagnosis for this admission?: Yes Plan: Likely secondary to exacerbation of COPD although possible undiagnosed pulmonary fibrosis given coarse crackles on exam 04/25/2019 patient came in with hypoxia most likely secondary to underlying COPD exacerbation. There is a question of pulmonary fibrosis plan to do the CT chest today. (4) Diabetes 1.5, managed as type 2 Is this a current diagnosis for this admission?: Yes Plan: Outpatient regiment with Humalog sliding scale ordered. 04/25/2019-patient has history of type 2 diabetes mellitus blood sugar is 276. Plan is to continue insulin sliding scale at this time. To check for hemoglobin A1c. diet, exercise weight loss compliance with medications discussed with the patient. (5) Hypokalemia Is this a current diagnosis for this admission?: Yes Plan: 04/25/2019-serum potassium is 3.5 to give a small dose of p.o. potassium supplementations.
--- NOTE | 2019-04-25 14:07 | RADIOLOGY REPORT (SQ) ---
EXAM DESCRIPTION: CT CHEST WITH COMPLETED DATE/TIME: 04/25/2019 1:37 pm REASON FOR STUDY: hypoxia COMPARISON: None. TECHNIQUE: CT scan of the chest performed using helical scanning technique with dynamic intravenous contrast injection. Images reviewed with lung, soft tissue and bone windows. Reconstructed coronal and sagittal MPR and MIP images reviewed. All images stored on PACS. All CT scanners at this facility use dose modulation, iterative reconstruction, and/or weight based d osing when appropriate to reduce radiation dose to as low as reasonably achievable (ALARA). [facility]: Dose Right [facility]: CareDose [facility]: Dose Right [facility]: Teradose 4D [facility]: [place] CONTRAST TYPE AND DOSE: contrast/concentration: Isovue 350.00 mg/ml; Total Contrast Delivered: 80.0 ml; Total Saline Delivered: 55.0 ml RENAL FUNCTION: BUN 17 creatinine 0.88 RADIATION DOSE: CT Rad equipment meets quality standard of care and radiation dose reduction techniq ues were employed. CTDIvol: 15.3 mGy. DLP: 588 mGy-cm. . LIMITATIONS: None. FINDINGS: LUNGS AND PLEURA: Minimal atelectasis in the left lower lobe. HILAR AND MEDIASTINAL STRUCTURES: No identified masses or abnormal nodes. HEART AND VASCULAR STRUCTURES: No aneurysm or dissection. No central pulmonary emboli. No pericardi al effusion. Coronary artery calcifications are present. HARDWARE: None in the chest. UPPER ABDOMEN: Hypoattenuation of the liver. THYROID AND OTHER SOFT TISSUES: No masses. No adenopathy. BONES: No significant finding. OTHER: No other significant finding. IMPRESSION: Coronary atherosclerosis. Hepatic steatosis. No acute finding in the thorax. TECHNICAL DOCUMENTATION: JOB ID: [id number] Quality ID # [id number]: Final reports with documentation of one or more dose reduction techniques (e.g., Au tomated exposure control, adjustment of the mA and/or kV according to patient size, use of iterative reconstruction technique) 2010 [employer]- All Rights Reserved Reading location - IP/workstation name: [email or web address]
--- NOTE | 2019-04-25 17:24 | EKG REPORT ---
SEVERITY:- ABNORMAL ECG - SINUS RHYTHM RIGHT BUNDLE BRANCH BLOCK : Confirmed by: Lisa Henderson 25-Apr-2019 17:23:30
[2019-04-25 19:25] LABS: A TYPE INFLUENZA AG NEGATIVE (NEGATIVE); B INFLUENZA AG NEGATIVE (NEGATIVE)
[2019-04-26 05:28] LABS: ABSOLUTE LYMPHOCYTES (AUTO) 0.8 10^3/uL (0.5-4.7); ABSOLUTE MONOCYTES (AUTO) 0.6 10^3/uL (0.1-1.4); ABSOLUTE NEUT (AUTO) 4.5 10^3/uL (1.7-8.2); BASOPHILS % (AUTO) 0.1 % (0-2); HEMATOCRIT 40.1 % (37.9-51.0); HEMOGLOBIN 13.8 g/dL (13.5-17.0); LYMPHOCYTES % (AUTO) 13.7 % (13-45); MEAN CORPUSCULAR HEMOGLOBIN 29.3 pg (27.0-33.4); MEAN CORPUSCULAR HGB CONC 34.4 g/dL (32.0-36.0); MEAN CORPUSCULAR VOLUME 85 fl (80-97); MONOCYTES % (AUTO) 10.2 % (3-13); PLATELET COUNT 219 10^3/uL (150-450); RED BLOOD COUNT 4.71 10^6/uL (4.35-5.55); RED CELL DISTRIBUTION WIDTH 13.5 % (11.5-14.0); TOTAL CELLS COUNTED % (AUTO) 100 %
[2019-04-26 05:52] LABS: ANION GAP 11 (5-19); BLOOD UREA NITROGEN 22 mg/dL (7-20); CARBON DIOXIDE 30 mmol/L (22-30); CHLORIDE 94 mmol/L (98-107); GLUCOSE 208 mg/dL (75-110); POTASSIUM 3.4 mmol/L (3.6-5.0)
[2019-04-26] MEDS ORDERED: LEVOTHYROXINE SODIUM 0.025 MG TABLET PO SCH (06:00)
[2019-04-26] MEDS: HEPARIN SOD (PORCINE) 5,000 UNIT/ML 1 ML VIAL SUBCUT SCH ×2 (06:20→14:26)
[2019-04-26] MEDS: INSULIN LISPRO 100 UNIT/ML 3 ML VIAL SUBCUT SCH ×2 (07:42→11:35)
[2019-04-26] MEDS: IPRATROPIUM/ALBUTEROL 0.5-2.5 MG/3 ML AMPUL NEB SCH (07:53)
[2019-04-26] MEDS: PREDNISONE 20 MG TABLET PO SCH (09:28)
[2019-04-26] MEDS: FLUTICASONE NASAL SPRAY 50 MCG/SPRY 120 SPRAY/16 GM NASL SCH (09:28)
[2019-04-26] MEDS: LEVOFLOXACIN 750 MG/D5W RTU 750 MG/150 ML RTUPB IV SCH (09:29)
[2019-04-26] MEDS ORDERED: OMEGA-3 ACID ETHYL ESTERS 1 GM CAPSULE PO SCH (10:00)
[2019-04-26] MEDS ORDERED: DHA PO SCH (10:00)
[2019-04-26] MEDS ORDERED: LIPIDS PO SCH (10:00)
[2019-04-26] MEDS ORDERED: [UNRECOGNIZED DRUG - OTHER] PO SCH (10:00)
[2019-04-26] MEDS ORDERED: OMEGA PO SCH (10:00)
[2019-04-26] MEDS ORDERED: AMLODIPINE BESYLATE 10 MG TABLET PO SCH (10:00)
[2019-04-26] MEDS ORDERED: KRILL PO SCH (10:00)
[2019-04-26] MEDS ORDERED: EPA PO SCH (10:00)
[2019-04-26 12:48] VITALS: BP 127/71
--- NOTE | 2019-04-26 13:18 | PDOC DISCHARGE SUMMARY ---
Impression - Admit/DC Date/PCP Admission Date/Primary Care Provider: 04/25/19 01:[facility] Discharge Date: 09/26/19 - Discharge Diagnosis (1) Bronchitis Is this a current diagnosis for this admission?: Yes (2) COPD with exacerbation Is this a current diagnosis for this admission?: Yes (3) Hypoxia Is this a current diagnosis for this admission?: Yes (4) Diabetes 1.5, managed as type 2 Is this a current diagnosis for this admission?: Yes (5) Hypokalemia Is this a current diagnosis for this admission?: Yes - Assessment Summary: (1) Bronchitis Is this a current diagnosis for this admission?: Yes Plan: Trial empiric antibiotic, prednisone, albuterol, Atrovent, flutter valve and incentive spirometry 04/25/2019-patient is presently on IV levo floxacillin, prednisone p.o. 20 mg twice a day, and flutter valve therapy, incentive spirometry, albuterol and Atrovent. Pulse ox is 94% on 2 L this morning. Plan to do the CT of the chest to get further information about hypoxia and rule out any malignancy. blood Cultures are pending. . 1220-patient admitted with COPD associated with bronchitis. Blood cultures negative. CT chest was negative for acute pathology. Patient is going to be discharged with a levofloxacin 5 mg p.o. daily for 1 week. Home oxygen requirement done and patient does not qualify for home oxygen supplementation. (2) COPD with exacerbation Is this a current diagnosis for this admission?: Yes Plan: Please see #1, ambulating pulse oximetry for oxygen supplementation requirement, 04/25/2019-patient admitted with COPD exacerbation he is ex-smoker. Plan is to continue scheduled and as needed nebulizations and p.o. prednisone. Plan to check for home oxygen requirements. 04/26/2019-patient admitted with COPD exacerbation may be secondary to bronchitis. Pulse ox today is 95% on room air. He did not qualify for home oxygen. He is going home today with p.o. antibiotic therapy. (3) Hypoxia Is this a current diagnosis for this admission?: Yes Plan: Likely secondary to exacerbation of COPD although possible undiagnosed pulmonary fibrosis given coarse crackles on exam 04/25/2019 patient came in with hypoxia most likely secondary to underlying COPD exacerbation. There is a question of pulmonary fibrosis plan to do the CT chest today. 04/26/2019-patient came to the emergency room found to be hypoxic. CT chest was negative. Pulse ox had atrial fibrillation room air. Hypoxia resolved. (4) Diabetes 1.5, managed as type 2 Is this a current diagnosis for this admission?: Yes Plan: Outpatient regiment with Humalog sliding scale ordered. 04/25/2019-patient has history of type 2 diabetes mellitus blood sugar is 276. Plan is to continue insulin sliding scale at this time. To check for hemoglobin A1c. diet, exercise weight loss compliance with medications discussed with the patient. 04/26/2019-patient has history of type 2 diabetes mellitus. Blood sugar is 182. Compliance with medications discussed with the patient again. (5) Hypokalemia Is this a current diagnosis for this admission?: Yes Plan: 04/25/2019-serum potassium is 3.5 to give a small dose of p.o. potassium supplementations. 04/26/2019-serum potassium today is 3.4. Patient received potassium supplementations. Hypokalemia is resolving. - Additional Information Resuscitation Status: Full Code Discharge Diet: Diabetic Discharge Activity: Activity As Tolerated [facility]errals: [facility] [Primary Care Provider] - 06/18/19 1:00 pm Prescriptions: Levofloxacin [Levaquin 500 mg Tablet] 500 mg PO DAILY #10 tablet Home Medications: Amlodipine Besylate [Norvasc 10 mg Tablet] 10 mg PO DAILY 09/02/18 Krill/[place]-3/Dha/Epa/Lipids [[place]-3 Krill Oil 500 mg Sfgl] 1 each PO DAILY 09/02/18 Levothyroxine Sodium [Synthroid 0.025 mg Tablet] 0.0125 mg PO Q6AM 09/02/18 Albuterol Sulfate [Albuterol Sulfate Hfa] 2 puff IH QIDP PRN 04/25/19 Aspirin/Dipyridamole [Aggrenox 25 mg/200 mg Capsule SA] 1 cap PO DAILY 04/25/19 Cetirizine HCl [Zyrtec] 10 mg PO DAILY 04/25/19 Fenofibrate Nanocrystallized [Tricor 145 mg Tablet] 145 mg PO DAILY 04/25/19 Hydrochlorothiazide [Hydrodiuril 25 mg Tablet] 25 mg PO QAM 04/25/19 Metformin HCl 500 mg PO BID 04/25/19 Metoprolol Tartrate [Lopressor] 50 mg PO Q12 04/25/19 Multivitamin with Minerals [One Daily Plus Minerals] 1 tab PO DAILY 04/25/19 Omeprazole 40 mg PO Q6AM 04/25/19 Potassium Chloride [Klor-Con M20] 20 meq PO QHS 04/25/19 Pravastatin Sodium 10 mg PO QHS 04/25/19 Levofloxacin [Levaquin 500 mg Tablet] 500 mg PO DAILY #10 tablet 04/26/19 History of Present Illiness History of Present Illness: JENNIFER CHAPARRO is a 63 year old male 63 year old male with a past medical history of hypertension, CVA with residual right-sided weakness, hypertension, diabetes,, GERD, COPD and allergic sinusitis. He presents with 48 hours of shortness of breath and a nonproductive cough prompting evaluation emergency room where he is found to have hypoxia with an oxygen saturation of 88% on room air requiring oxygen. Chest x-ray is unremarkable. He denies fever, chest pain, nausea vomiting, rhinorrhea or sore throat. He denies recent antibiotic use. Hospital Course Hospital Course: 63 year old male with a past medical history of hypertension, CVA with residual right-sided weakness, hypertension, diabetes,, GERD, COPD and allergic sinusitis. He presents with 48 hours of shortness of breath and a nonproductive cough prompting evaluation emergency room where he is found to have hypoxia with an oxygen saturation of 88% on room air requiring oxygen. Chest x-ray is unremarkable. He denies fever, chest pain, nausea vomiting, rhinorrhea or sore throat. He denies recent antibiotic use. 04/25/[id number]-eymn-old male with history of diabetes mellitus, hypertension, CVA with right-sided weakness, COPD admitted with shortness of breath. Patient found to be hypoxic in the emergency room. Pulse ox is 94% on 2 L this morning. Patient is not on home oxygen. Chest x-ray was a normal study. Plan to do the CT of the chest with contrast today for further information.. 04/26/1904-57-ziiw-old male with history of diabetes mellitus, hypertension, CVA with right-sided weakness, COPD admitted with shortness of breath. Differential diagnosis is underlying bronchitis. He was treated with antibiotic therapy patient is afebrile cultures are negative. CT chest is negative for acute pathology. Patient is expressing desire to go home plan is to discharge him home on levo floxacillin 500 mg p.o. daily for 1 week. We did check for home oxygen requirements , he did not meet the criteria. Physical Exam Vital Signs: Temp Pulse Resp BP Pulse Ox 97.5 F 80 19 127/71 H 97 04/26/19 12:46 04/26/19 12:46 04/26/19 12:46 04/26/19 12:46 04/26/19 12:46 Intake & Output 04/25/19 04/26/19 04/27/19 06:59 06:59 06:59 Intake Total 732 240 Output Total 220 Balance -220 732 240 Weight 83.9 kg 80.3 kg General appearance: PRESENT: no acute distress, well-developed Head exam: PRESENT: atraumatic Mouth exam: PRESENT: moist, tongue midline Neck exam: ABSENT: carotid bruit, JVD, lymphadenopathy, thyromegaly Respiratory exam: PRESENT: decreased breath sounds Pulses: PRESENT: normal dorsalis pedis pul GI/Abdominal exam: PRESENT: normal bowel sounds, soft. ABSENT: distended, guarding, mass, organolmegaly, rebound, tenderness Rectal exam: PRESENT: deferred Neurological exam: PRESENT: alert, awake, oriented to person, oriented to place, oriented to time, oriented to situation, CN II-XII grossly intact. ABSENT: motor sensory deficit Psychiatric exam: PRESENT: appropriate affect, normal mood. ABSENT: homicidal ideation, suicidal ideation Results Laboratory Results: WBC 6.0 10^3/uL (4.0-10.5) 04/26/19 04:15 RBC 4.71 10^6/uL (4.35-5.55) 04/26/19 04:15 Hgb 13.8 g/dL (13.5-17.0) 04/26/19 04:15 Hct 40.1 % (37.9-51.0) 04/26/19 04:15 MCV 85 fl (80-97) 04/26/19 04:15 MCH 29.3 pg (27.0-33.4) 04/26/19 04:15 MCHC 34.4 g/dL (32.0-36.0) 04/26/19 04:15 RDW 13.5 % (11.5-14.0) 04/26/19 04:15 Plt Count 219 10^3/uL (150-450) 04/26/19 04:15 Lymph % (Auto) 13.7 % (13-45) 04/26/19 04:15 [place] % (Auto) 10.2 % (3-13) 04/26/19 04:15 Eos % (Auto) 0.0 % (0-6) 04/26/19 04:15 Baso % (Auto) 0.1 % (0-2) 04/26/19 04:15 Absolute Neuts (auto) 4.5 10^3/uL (1.7-8.2) 04/26/19 04:15 Absolute Lymphs (auto) 0.8 10^3/uL (0.5-4.7) 04/26/19 04:15 Absolute Monos (auto) 0.6 10^3/uL (0.1-1.4) 04/26/19 04:15 Absolute Eos (auto) 0.0 10^3/uL (0.0-0.6) 04/26/19 04:15 Absolute Basos (auto) 0.0 10^3/uL (0.0-0.2) 04/26/19 04:15 Seg Neutrophils % 76.0 % (42-78) 04/26/19 04:15 Sodium 134.6 mmol/L (137-145) L 04/26/19 04:15 Potassium 3.4 mmol/L (3.6-5.0) L 04/26/19 04:15 Chloride 94 mmol/L (98-107) L 04/26/19 04:15 Carbon Dioxide 30 mmol/L (22-30) 04/26/19 04:15 Anion Gap 11 (5-19) 04/26/19 04:15 BUN 22 mg/dL (7-20) H 04/26/19 04:15 Creatinine 0.87 mg/dL (0.52-1.25) 04/26/19 04:15 Est GFR ( Amer) > 60 (>60) 04/26/19 04:15 Est GFR (MDRD) Non-Af > 60 (>60) 04/26/19 04:15 Glucose 208 mg/dL (75-110) H 04/26/19 04:15 POC Glucose 190 mg/dL (70-110) H 04/26/19 10:29 Calcium 9.0 mg/dL (8.4-10.2) 04/26/19 04:15 Magnesium 1.8 mg/dL (1.6-2.3) 04/26/19 04:15 Total Bilirubin 0.4 mg/dL (0.2-1.3) 04/24/19 20:48 Direct Bilirubin 0.4 mg/dL (0.0-0.4) 04/24/19 20:48 Neonat Total Bilirubin Not Reportable 04/24/19 20:48 Neonat Direct Bilirubin Not Reportable 04/24/19 20:48 Neonat Indirect Bili Not Reportable 04/24/19 20:48 AST 84 U/L (17-59) H 04/24/19 20:48 ALT 87 U/L (<50) H 04/24/19 20:48 Alkaline Phosphatase 71 U/L (38-126) 04/24/19 20:48 Creatine Kinase 494 U/L (55-170) H 04/24/19 20:48 CK-MB (CK-2) 0.56 ng/mL (<4.55) 04/24/19 20:48 Troponin I < 0.012 ng/mL 04/24/19 20:48 NT-Pro-B Natriuret Pep 29 pg/mL (<125) 04/24/19 20:48 Total Protein 7.6 g/dL (6.3-8.2) 04/24/19 20:48 Albumin 4.4 g/dL (3.5-5.0) 04/24/19 20:48 Urine Color YELLOW 04/24/19 23:31 Urine Appearance SLIGHTLY-CLOUDY 04/24/19 23:31 Urine pH 5.0 (5.0-9.0) 04/24/19 23:31 Ur Specific [place] 1.016 04/24/19 23:31 Urine Protein NEGATIVE mg/dL (NEGATIVE) 04/24/19 23:31 Urine Glucose (UA) NEGATIVE mg/dL (NEGATIVE) 04/24/19 23:31 Urine Ketones NEGATIVE mg/dL (NEGATIVE) 04/24/19 23:31 Urine Blood NEGATIVE (NEGATIVE) 04/24/19 23:31 Urine Nitrite NEGATIVE (NEGATIVE) 04/24/19 23:31 Urine Bilirubin NEGATIVE (NEGATIVE) 04/24/19 23:31 Urine Urobilinogen NEGATIVE mg/dL (<2.0) 04/24/19 23:31 Ur Leukocyte Esterase NEGATIVE (NEGATIVE) 04/24/19 23:31 Ur Squamous Epith Cells RARE /HPF 04/24/19 23:31 Urine Mucus TRACE 04/24/19 23:31 Urine Ascorbic Acid 40 (NEGATIVE) H 04/24/19 23:31 Influenza A (Rapid) NEGATIVE (NEGATIVE) 04/25/19 18:30 Influenza B (Rapid) NEGATIVE (NEGATIVE) 04/25/19 18:30 04/24/19 20:48 CK-MB (CK-2) 0.56 Troponin I < 0.012 NT-Pro-B Natriuret Pep 29 Impressions: Chest X-Ray 04/24/19 20:19 IMPRESSION: Lungs grossly clear copyright 2011 [employer]- All Rights Reserved Chest CT 04/25/19 00:00 IMPRESSION: Coronary atherosclerosis. Hepatic steatosis. No acute finding in the thorax. Plan Plan of Treatment: Patient was given a prescription for levofloxacin 5 mg p.o. daily for 1 week. Patient was advised to follow-up with primary care physician in less than a week. He agreed for the discharge plan verbalized response. Time Spent: Greater than 30 Minutes Stroke Is this a Stroke Patient?: No Acute Heart Failure - Is this a Heart Failure Patient?: No
== END 2019-04-26 14:15 | disposition home or self-care (01) ==
LOC: ER 19:04 → EH 04-25 01:41 → 4N 04-25 02:44
PROVIDERS: ADMIT Internal Medicine; ATTEND Internal Medicine
DX: J40 Bronchitis, not specified as acute or chronic (principal); J44.1 Chronic obstructive pulmonary disease with (acute) exacerbation; R09.02 Hypoxemia; E13.9 Other specified diabetes mellitus without complications; E87.6 Hypokalemia; I10 Essential (primary) hypertension; I69.351 Hemiplegia and hemiparesis following cerebral infarction affecting right dominant side; K21.9 Gastro-esophageal reflux disease without esophagitis; J30.9 Allergic rhinitis, unspecified; K76.0 Fatty (change of) liver, not elsewhere classified; E66.9 Obesity, unspecified; Z87.891 Personal history of nicotine dependence; Z79.82 Long term (current) use of aspirin; Z79.84 Long term (current) use of oral hypoglycemic drugs; I25.10 Atherosclerotic heart disease of native coronary artery without angina pectoris; Z87.01 Personal history of pneumonia (recurrent)
CPT/HCPCS: 93005; 94640 ×5; 99285; 96374; 36415 ×3; 87040; 82553; 82962 ×2; 82550; 83735; 85025 ×3; 80048; 80053; 81001 ×2; 84484; 87804; 83880; 71045; 71260; 94799; 93010; 94667; 94668; G0378 ×3; J1644 ×2; J1815 ×2; J2930; J7512 ×2; J3490 ×3; J1956 ×2; J7620 ×3